=== PATIENT | female | born 1955 | race Caucasian/White ===

== ENCOUNTER 2017-08-23 21:28 | Inpatient (IN) | payer BC ==
[2017-08-23] MEDS ORDERED: Ondansetron ODT TAB* 4 MG PO ONE (21:43)
[2017-08-23] MEDS ORDERED: HYDROmorphone INJ* 2 MG/ML CARPUJECT SYRINGE IV SLOW PU ONE (21:43)
[2017-08-23 22:13] LABS: ABS Basophils 0.1 10^3/ul (0-0.2); ABS Eosinophils 0.1 10^3/ul (0-0.6); ABS Lymphocytes 1.3 10^3/ul (1.0-4.8); ABS Monocytes 0.4 10^3/ul (0-0.8); ABS Neutrophils 9.6 10^3/ul (1.5-7.7); ABS Nucleated RBC 0 10^3/ul; Hematocrit 43 % (35-47); Hemoglobin 14.3 g/dl (12.0-16.0); Lymphocyte % 11.4 % (25-47); Mean Corpuscular HGB Conc 33 g/dl (31-36); Mean Corpuscular Hemoglobin 33 pg (27-31); Mean Corpuscular Volume 100 fL (80-97); Mean Platelet Volume 8 um3 (7.4-10.4); Nucleated Red Blood Cells % 0.1; Platelet Count 283 10^3/ul (150-450); Red Blood Count 4.31 10^6/ul (4.0-5.4); Red Cell Distribution Width 13 % (10.5-15); White Blood Count 11.5 10^3/ul (3.5-10.8)
[2017-08-23 22:21] LABS: INR 0.82 (0.77-1.02)
[2017-08-23 22:25] LABS: EGFR Non-African American 89.8 (>60)
--- NOTE | 2017-08-23 23:44 | ED ---
Luis Prasad Abhishek, scribed for Darien Dominguez MD on 08/23/17 at 2255 . Lower Extremity - HPI Summary HPI Summary: This patient is a 61 year old F BIBA accompanied by a male with a chief complaint of right hip pain s/p fall since earlier today. The pt states she fell on a carpeted concrete floor and on her right knee. Upon attempting to get up after the fall, pt states she heard a pop. There was a sudden onset of right knee pain upon hearing the pop. Pt is reportedly able to rotate her knee currently in the ED and does report right knee pain after palpation of the right knee. Symptoms are aggravated by movement and position. Symptoms are alleviated by nothing. The patient rates the pain 6/10 in severity. Symptoms aggravated by nothing. Symptoms alleviated by nothing. Patient denies ambulation. - History of Current Complaint Chief Complaint: EDHipPelvisInjury Stated Complaint: RT HIP PAIN Time Seen by Provider: 08/23/17 21:31 Hx Obtained From: Patient Mechanism Of Injury: Fall From A Standing Position - carpeted concrete floor. Onset of Pain: Hours, Prior to Arrival Severity Initially: Moderate Severity Currently: Moderate Pain Intensity: 6 Pain Scale Used: 0-10 Numeric Location: Is Discrete @ - right hip Character Of Pain: Unable To Describe Associated Signs And Symptoms: Positive: Knee Pain - Prior to [facility]. Currently resolved. 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 HITTING CORRALES- AGE 17 NO PROBLEMS SINCE Denies: Hx Angina, Hx Coronary Artery Disease, Hx Hypercholesterolemia, Hx Myocardial Infarction, Hx Pacemaker/ICD, Hx Valvular Heart Disease Respiratory History: Denies: Hx Asthma, Hx Chronic Obstructive Pulmonary Disease (COPD) GI History: Reports: Hx Gastroesophageal Reflux Disease - WELL CONTROLLED, Hx Irritable Bowel - OCCASIONALLY, Hx Ulcer - gerd, Other GI Disorders - CHRONIC CONSTIPATION History: Reports: Hx Kidney Stones - HX OF IN THE PAST Denies: Hx Renal Disease Musculoskeletal History: Reports: Hx Arthritis - BILAT KNEES, FEET Sensory History: Reports: Hx Contacts or Glasses Denies: Hx Hearing Aid Opthamlomology History: Reports: Hx Contacts or Glasses Neurological History: Reports: Hx Migraine - RARE, Other Neuro Impairments/ Disorders - TAKES WELLBUTRIN- FOR MOOD STABILIZING Psychiatric History: Denies: Hx Panic Disorder - Cancer History Hx Chemotherapy: No Hx Radiation Therapy: No - Surgical History Surgery Procedure, Year, and Place: hammer toe repair. right knee meniscus repair. carpel tunnel bilat repair left twice Hx Anesthesia Reactions: No Infectious Disease History: No Infectious Disease History: Denies: Hx Clostridium Difficile, Hx Hepatitis, Hx Human Immunodeficiency Virus (HIV), Hx of Known/Suspected MRSA, Hx Shingles, Hx Tuberculosis, Traveled Outside the in Last 30 Days - Family History Known Family History: Positive: Cardiac Disease Negative: Diabetes - Social History Lives: With Family Alcohol Use: Weekly Alcohol Amount: 3-4/WEEKEND Substance Use Type: Reports: None Smoking Status (MU): Former Smoker Type: Cigarettes Amount Used/How Often: 1/2 PPD X 30 YEARS Length of Time of Smoking/Using Tobacco: 30+ YRS Have You Smoked in the Last Year: No Review of Systems Constitutional: Negative Eyes: Negative ENT: Negative Cardiovascular: Negative Respiratory: Negative Gastrointestinal: Negative Genitourinary: Negative Musculoskeletal: Other - right hip pain; right knee pain (prior to [facility] arrival ) Positive: Other - Unable to ambulate Skin: Negative Neurological: Negative Psychological: Normal All Other Systems Reviewed And Are Negative: Yes Physical Exam - Summary Physical Exam Summary: VITAL SIGNS: Reviewed. GENERAL: ~Patient is a well-developed and nourished ( FEMALE) who is lying comfortable in the stretcher. Patient is not in any acute respiratory distress. HEAD AND FACE: No signs of trauma. No ecchymosis, hematomas or skull depressions. No sinus tenderness. EYES: PERRLA, EOMI x 2, No injected conjunctiva, no nystagmus. EARS: Hearing grossly intact. Ear canals and tympanic membranes are within normal limits. MOUTH: Oropharynx within normal limits. NECK: Supple, trachea is midline, no adenopathy, no JVD, no carotid bruit, no c- spine tenderness, neck with full ROM. CHEST: Symmetric, no tenderness at palpation LUNGS: Clear to auscultation bilaterally. No wheezing or crackles. CVS: Regular rate and rhythm, S1 and S2 present, no murmurs or gallops appreciated. ABDOMEN: Soft, non-tender. No signs of distention. No rebound no guarding, and no masses palpated. Bowel sounds are normal. EXTREMITIES: Pain with right hip movement. Shortening and extended rotation of the right lower extremity NEURO: Alert and oriented x 3. No acute neurological deficits. Speech is normal and follows commands. Neurovascular exam intact SKIN: Dry and warm Triage Information Reviewed: Yes Vital Signs On Initial Exam: Initial Vitals Temp Pulse Resp BP Pulse Ox 98.4 F 102 20 156/76 99 08/23/17 21:30 08/23/17 21:30 08/23/17 21:30 08/23/17 21:30 08/23/17 21:30 Vital Signs Reviewed: Yes - Denae Coma Scale Coma Scale Total: 15 Diagnostics - Vital Signs Vital Signs Temp Pulse Resp BP Pulse Ox 08/23/17 22:06 101 18 100 08/23/17 21:39 106 99 08/23/17 21:38 103 99 08/23/17 21:31 156/76 08/23/17 21:30 98.4 F 102 20 156/76 99 - Laboratory Lab Results: Lab Results 08/23/17 08/23/17 08/23/17 Range/Units 21:50 21:50 21:50 WBC 11.5 H (3.5-10.8) 10^3/ul RBC 4.31 (4.0-5.4) 10^6/ul Hgb 14.3 (12.0-16.0) g/dl Hct 43 (35-47) % MCV 100 H (80-97) fL MCH 33 H (27-31) pg MCHC 33 (31-36) g/dl RDW 13 (10.5-15) % Plt Count 283 (150-450) 10^3/ul MPV 8 (7.4-10.4) um3 Neut % (Auto) 83.2 H (38-83) % Lymph % (Auto) 11.4 L (25-47) % [place] % (Auto) 3.8 (1-9) % Eos % (Auto) 1.0 (0-6) % Baso % (Auto) 0.6 (0-2) % Absolute Neuts (auto) 9.6 H (1.5-7.7) 10^3/ul Absolute Lymphs (auto) 1.3 (1.0-4.8) 10^3/ul Absolute Monos (auto) 0.4 (0-0.8) 10^3/ul Absolute Eos (auto) 0.1 (0-0.6) 10^3/ul Absolute Basos (auto) 0.1 (0-0.2) 10^3/ul Absolute Nucleated RBC 0 10^3/ul Nucleated RBC % 0.1 INR (Anticoag Therapy) 0.82 (0.77-1.02) APTT 26.5 (26.0-36.3) seconds Sodium 134 (133-145) mmol/L Potassium 3.8 (3.5-5.0) mmol/L Chloride 101 (101-111) mmol/L Carbon Dioxide 26 (22-32) mmol/L Anion Gap 7 (2-11) mmol/L BUN 24 (6-24) mg/dL Creatinine 0.67 (0.51-0.95) mg/dL Est GFR ( Amer) 115.5 (>60) Est GFR (Non-Af Amer) 89.8 (>60) BUN/Creatinine Ratio 35.8 H (8-20) Glucose 115 H (70-100) mg/dL Calcium 9.8 (8.6-10.3) mg/dL Total Bilirubin 0.60 (0.2-1.0) mg/dL AST 26 (13-39) U/L ALT 21 (7-52) U/L Alkaline Phosphatase 43 (34-104) U/L Total Protein 7.8 (6.4-8.9) g/dL Albumin 4.5 (3.2-5.2) g/dL Globulin 3.3 (2-4) g/dL Albumin/Globulin Ratio 1.4 (1-3) Blood Type Antibody Screen 08/23/17 Range/Units 21:50 WBC (3.5-10.8) 10^3/ul RBC (4.0-5.4) 10^6/ul Hgb (12.0-16.0) g/dl Hct (35-47) % MCV (80-97) fL MCH (27-31) pg MCHC (31-36) g/dl RDW (10.5-15) % Plt Count (150-450) 10^3/ul MPV (7.4-10.4) um3 Neut % (Auto) (38-83) % Lymph % (Auto) (25-47) % [place] % (Auto) (1-9) % Eos % (Auto) (0-6) % Baso % (Auto) (0-2) % Absolute Neuts (auto) (1.5-7.7) 10^3/ul Absolute Lymphs (auto) (1.0-4.8) 10^3/ul Absolute Monos (auto) (0-0.8) 10^3/ul Absolute Eos (auto) (0-0.6) 10^3/ul Absolute Basos (auto) (0-0.2) 10^3/ul Absolute Nucleated RBC 10^3/ul Nucleated RBC % INR (Anticoag Therapy) (0.77-1.02) APTT (26.0-36.3) seconds Sodium (133-145) mmol/L Potassium (3.5-5.0) mmol/L Chloride (101-111) mmol/L Carbon Dioxide (22-32) mmol/L Anion Gap (2-11) mmol/L BUN (6-24) mg/dL Creatinine (0.51-0.95) mg/dL Est GFR ( Amer) (>60) Est GFR (Non-Af Amer) (>60) BUN/Creatinine Ratio (8-20) Glucose (70-100) mg/dL Calcium (8.6-10.3) mg/dL Total Bilirubin (0.2-1.0) mg/dL AST (13-39) U/L ALT (7-52) U/L Alkaline Phosphatase (34-104) U/L Total Protein (6.4-8.9) g/dL Albumin (3.2-5.2) g/dL Globulin (2-4) g/dL Albumin/Globulin Ratio (1-3) Blood Type O Positive Antibody Screen Negative Result Diagrams: 08/23/17 21:50 08/23/17 21:50 Lab Statement: Any lab studies that have been ordered have been reviewed, and results considered in the medical decision making process. - Radiology Knee X-ray Radiology Interpretation Completed By: ED Physician - Knee X-ray reveals she has hardware no fracture as per ED physician Chest X-ray Radiology Interpretation Completed By: ED Physician - Chest X-ray reveals poor expiratory effort and acute process as per ED physician Hip/pelvis X-ray Radiology Interpretation Completed By: ED Physician - Hip/pelvis X-ray reveals intertrochanteric fracture right hip as per ED physician - EKG 2147 EKG Rhythm: Sinus Tachycardia - 105 bpm EKG Interpretation: Time taken: 2147. normal interval, normal axis and no ischemic changes Lower Extremity Course/Dx - Course Course Of Treatment: We consulted Orthopedist, Dr. Johnson at 0 and he recommended admitting the patient to the [facility] We discussed patient care with Dr. Amaro at 2330 and he accepts patient care. Pt will be admitted to the [facility] The dx will be right hip fracture. - Diagnoses Provider Diagnoses: Hip fracture, right - Physician Notifications Discussed Care Of Patient With: Yan Amaro - we discussed patient care. Time Discussed With Above Provider: 23:30 Instructed by Provider To: Admit As Inpatient Discharge - Discharge Plan Condition: Stable Disposition: ADMITTED TO [facility] Referrals: Belem Griffith MD [Primary Care Provider] - The documentation as recorded by the Luis smith Abhishek accurately reflects the service I personally performed and the decisions made by me, Darien Dominguez MD.
[2017-08-24] MEDS ORDERED: Ondansetron INJ* 2 MG/ML VIAL IV PRN ×2 (00:29→15:42)
[2017-08-24] MEDS ORDERED: LORazepam INJ* 2 MG/ML 1 ML VIAL IV PRN (00:29)
[2017-08-24] MEDS ORDERED: Acetaminophen TAB* 325 MG PO PRN (00:29)
[2017-08-24] MEDS ORDERED: Albuterol 2.5 MG/3 ML NEB.SOL* (0.083%) INH PRN (00:29)
[2017-08-24] MEDS ORDERED: NS 0.9% 1000 ML* 1,000 ML IV SCH (00:30)
[2017-08-24] MEDS ORDERED: traZODone TAB* 50 MG TAB PO PRN (00:31)
[2017-08-24] MEDS: fentaNYL* 50 MCG/ML 2 ML VIAL (100 MCG VIAL) IV SLOW PU PRN ×4 (02:56→10:24)
[2017-08-24 04:01] LABS: Urine Appearance Clear; Urine Blood Negative (Negative); Urine Color Yellow; Urine Ketones Negative (Negative); Urine Protein Negative (Negative); Urine Specific Gravity 1.026 (1.010-1.030); Urine Urobilinogen Negative (Negative)
--- NOTE | 2017-08-24 05:48 | HP ---
H&P (Free Text) History and Physical: PCP: Ronald Griffith MD Date/Time: 08/24/2017 0020 CC: fall, R hip pain HPI: Mrs Brady is a 61YO female HX HTN & GERD who was at home cleaning the samuel from her coal stove when she tripped on the carpet landing on her R hip experiencing immediate severe pain w/ an inability to weight bear. EMS was called for transport. Pain is worse with movement & palpation of the R hip, better with immobility. There was no head injury or LOC. No prodromal symptoms. Xray confirms intertrochanteric R hip FX. Tona Johnson MD orthopedic surgery was consulted by ED & will evaluate in AM. She denies recent chest pain, SOB, palpitations, light-headedness, or other new symptoms. PMedHx HTN GERD anxiety/depression Ambulatory Orders Nursing to reconcile. Diovan Hct 320/25(NF) 0.5 tab PO QAM 09/13/13 Flax Seeds 1 tab PO DAILY 09/13/13 Multiple Vitamins W/ Minerals [Multivitamin] 1 liq PO DAILY 09/13/13 Omeprazole CAP* [Prilosec CAP*] 20 mg PO QAM 09/13/13 Wellbutrin TAB* 300 mg PO QAM 09/13/13 Cyanocobalamin TAB* [Vitamin B12 TAB*] 500 mcg PO DAILY 07/13/15 Fexofenadine (NF) [Katerina 180 (NF)] 180 mg PO QAM 07/13/15 Pyridoxine TAB* [Vitamin B6 TAB*] 50 mg PO DAILY 07/13/15 Acetaminophen [Acetaminophen Extra Stren] 2 tab PO DAILY PRN 08/01/16 Fluticasone NASAL SPRAY 50MCG* [Flonase NASAL SPRAY 50MCG*] 2 spray BOTH NARES DAILY PRN 03/28/17 Lidocaine [Lidocream] 4 % EX TID PRN 03/28/17 traZODone TAB* [Desyrel TAB*] 50 mg PO BEDTIME PRN 03/28/17 Hemorrhoidal OINT* 1 applic TOPICAL TID PRN 04/02/17 Allergies Cephalexin [From Keflex] Allergy (Verified 08/08/16 07:22) Shortness of Breath Erythromycin Allergy (Verified 08/08/16 07:22) Rash PSurgHx B carpal tunnel release R rotator cuff repair 2016 R TKA L bunionectomy & hammer toe repair SocHx: former smoker quit 6-7years ago, minimal alcohol, no recreational drugs; lives with her ; retired [employer]; full code status FamHx: Mother passed in her 70s 2nd traumatic ICH. Father passed in his 80s 2nd CAD. One sister passed of pancreatic CA. Another sister has breast CA. Two sisters are healthy. Only brother is healthy. ROS: as above, otherwise reviewed and all were negative vitals: Vital Signs Temp 36.8 C 08/24/17 03:24 Pulse 105 08/24/17 03:24 Resp 18 08/24/17 05:07 BP 135/80 08/24/17 03:24 Pulse Ox 93 08/24/17 03:24 Intake & Output 08/23/17 08/23/17 08/24/17 11:59 23:59 11:59 Intake Total 130 Balance 130 Weight 92.986 kg 92.986 kg Intake: Oral 130 Constitutional: NAD, normally developed, obese white female HEENM: atraumatic; sclera/conjunctiva: anicteric/clear; hearing: clinically intact; oropharynx: clear, mucosa moist Neck: soft tissue: non-tender; thyroid: normal Pulmonary: clear to auscultation bilaterally, good aeration, no accessory muscle use CV: RR/RR, normal S1S2, no carotid bruit, no jugular venous distention, 2+ B DP/ PT, no edema Abdominal: soft, non-distended, non-tender, no rebound/guarding/rigidity, normoactive bowel sounds, no hepatosplenomegaly or masses, no costovertebral angle tenderness Musculoskeletal: general: RLE is shortened and externally rotated; gait: non- ambulatory currently Integumental: normal appearance and texture of exposed skin Psychiatric orientation: AA&O to PPS affect: calm mood: cooperative eye contact: good content: reliable responses: timely insight: good Testing: Lab Results 08/23/17 08/23/17 08/23/17 Range/Units 21:50 21:50 21:50 WBC 11.5 H (3.5-10.8) 10^3/ul RBC 4.31 (4.0-5.4) 10^6/ul Hgb 14.3 (12.0-16.0) g/dl Hct 43 (35-47) % MCV 100 H (80-97) fL MCH 33 H (27-31) pg MCHC 33 (31-36) g/dl RDW 13 (10.5-15) % Plt Count 283 (150-450) 10^3/ul MPV 8 (7.4-10.4) um3 Neut % (Auto) 83.2 H (38-83) % Lymph % (Auto) 11.4 L (25-47) % [place] % (Auto) 3.8 (1-9) % Eos % (Auto) 1.0 (0-6) % Baso % (Auto) 0.6 (0-2) % Absolute Neuts (auto) 9.6 H (1.5-7.7) 10^3/ul Absolute Lymphs (auto) 1.3 (1.0-4.8) 10^3/ul Absolute Monos (auto) 0.4 (0-0.8) 10^3/ul Absolute Eos (auto) 0.1 (0-0.6) 10^3/ul Absolute Basos (auto) 0.1 (0-0.2) 10^3/ul Absolute Nucleated RBC 0 10^3/ul Nucleated RBC % 0.1 INR (Anticoag Therapy) 0.82 (0.77-1.02) APTT 26.5 (26.0-36.3) seconds Sodium 134 (133-145) mmol/L Potassium 3.8 (3.5-5.0) mmol/L Chloride 101 (101-111) mmol/L Carbon Dioxide 26 (22-32) mmol/L Anion Gap 7 (2-11) mmol/L BUN 24 (6-24) mg/dL Creatinine 0.67 (0.51-0.95) mg/dL Est GFR ( Amer) 115.5 (>60) Est GFR (Non-Af Amer) 89.8 (>60) BUN/Creatinine Ratio 35.8 H (8-20) Glucose 115 H (70-100) mg/dL Calcium 9.8 (8.6-10.3) mg/dL Total Bilirubin 0.60 (0.2-1.0) mg/dL AST 26 (13-39) U/L ALT 21 (7-52) U/L Alkaline Phosphatase 43 (34-104) U/L Total Protein 7.8 (6.4-8.9) g/dL Albumin 4.5 (3.2-5.2) g/dL Globulin 3.3 (2-4) g/dL Albumin/Globulin Ratio 1.4 (1-3) Urine Color Urine Appearance Urine pH (5-9) Ur Specific [place] (1.010-1.030) Urine Protein (Negative) Urine Ketones (Negative) Urine Blood (Negative) Urine Nitrate (Negative) Urine Bilirubin (Negative) Urine Urobilinogen (Negative) Ur Leukocyte Esterase (Negative) Urine Glucose (Negative) Blood Type Antibody Screen 08/23/17 08/24/17 Range/Units 21:50 03:30 WBC (3.5-10.8) 10^3/ul RBC (4.0-5.4) 10^6/ul Hgb (12.0-16.0) g/dl Hct (35-47) % MCV (80-97) fL MCH (27-31) pg MCHC (31-36) g/dl RDW (10.5-15) % Plt Count (150-450) 10^3/ul MPV (7.4-10.4) um3 Neut % (Auto) (38-83) % Lymph % (Auto) (25-47) % [place] % (Auto) (1-9) % Eos % (Auto) (0-6) % Baso % (Auto) (0-2) % Absolute Neuts (auto) (1.5-7.7) 10^3/ul Absolute Lymphs (auto) (1.0-4.8) 10^3/ul Absolute Monos (auto) (0-0.8) 10^3/ul Absolute Eos (auto) (0-0.6) 10^3/ul Absolute Basos (auto) (0-0.2) 10^3/ul Absolute Nucleated RBC 10^3/ul Nucleated RBC % INR (Anticoag Therapy) (0.77-1.02) APTT (26.0-36.3) seconds Sodium (133-145) mmol/L Potassium (3.5-5.0) mmol/L Chloride (101-111) mmol/L Carbon Dioxide (22-32) mmol/L Anion Gap (2-11) mmol/L BUN (6-24) mg/dL Creatinine (0.51-0.95) mg/dL Est GFR ( Amer) (>60) Est GFR (Non-Af Amer) (>60) BUN/Creatinine Ratio (8-20) Glucose (70-100) mg/dL Calcium (8.6-10.3) mg/dL Total Bilirubin (0.2-1.0) mg/dL AST (13-39) U/L ALT (7-52) U/L Alkaline Phosphatase (34-104) U/L Total Protein (6.4-8.9) g/dL Albumin (3.2-5.2) g/dL Globulin (2-4) g/dL Albumin/Globulin Ratio (1-3) Urine Color Yellow Urine Appearance Clear Urine pH 5.0 (5-9) Ur Specific [place] 1.026 (1.010-1.030) Urine Protein Negative (Negative) Urine Ketones Negative (Negative) Urine Blood Negative (Negative) Urine Nitrate Negative (Negative) Urine Bilirubin Negative (Negative) Urine Urobilinogen Negative (Negative) Ur Leukocyte Esterase Negative (Negative) Urine Glucose Negative (Negative) Blood Type O Positive Antibody Screen Negative ECG, personally reviewed: sinus tachycardia rate 105, no ischemia CXR, personally reviewed: no acute process, poor inspiration, ? bone island mid- shaft R clavicle XRY pelvis/R hip, personally reviewed: intertrochanteric R hip FX XRY R knee, personally reviewed: s/p TKA in good position, no acute bony injury noted Impression: 61F HX HTN & GERD presenting w/ R hip FX s/p mechanical fall DIAGNOSIS & PLAN Primary R hip FX s/p mechanical fall : NPO after midnight : Tona Johnson MD orthopedic surgery consulted by ED, will evaluate in AM : pain control : supportive care ? bone island mid-shaft R clavicle : not clearly apparent on comparison CTA or CXR from 2013 : recommend reviewed w/ radiology in AM Secondary HTN : review meds once reconciled GERD : pantoprazole IV Admission Rational: inpatient for R hip FX DVTp: SCDs now, heparin SQ once cleared post-operatively Code Status: full HCP:
--- NOTE | 2017-08-24 07:06 | RAD ---
INDICATION: Fall, hip fracture. COMPARISON: Comparison is made to prior chest x-ray study from September 13, 2013. TECHNIQUE: 2 AP films of the chest were obtained. FINDINGS: The heart is within normal limits in size. Mediastinal and hilar contours appear within normal limits. The lungs are clear. No pleural effusion is present. IMPRESSION: NO EVIDENCE FOR ACTIVE CARDIOPULMONARY DISEASE.
--- NOTE | 2017-08-24 07:07 | RAD ---
INDICATION: Right hip injury. COMPARISON: Comparison is made with a prior x-ray study from December 01, 2014. TECHNIQUE: An AP view of the pelvis and frontal and lateral views of the right hip were obtained. FINDINGS: There is a slightly comminuted intertrochanteric fracture of the right femur. The fracture fragments are slightly displaced. No additional fracture is seen. IMPRESSION: SLIGHTLY DISPLACED INTERTROCHANTERIC FRACTURE OF THE RIGHT FEMUR.
--- NOTE | 2017-08-24 07:10 | RAD ---
INDICATION: Right knee injury. TECHNIQUE: 3 views of the right knee were obtained. FINDINGS: The exam is limited due to positioning. The patient is status post total right knee replacement surgery. The bones and prostheses are in normal alignment. No fracture is seen. IMPRESSION: LIMITED STUDY, NO EVIDENCE FOR FRACTURE.
[2017-08-24] MEDS: Pantoprazole IV* 40 MG IV SCH (08:45)
[2017-08-24] MEDS: Docusate CAP* 100 MG PO SCH ×2 (08:50→22:26)
[2017-08-24] MEDS ORDERED: Influenza VAC *QUAD* 2017-18* 0.5 ML SYRINGE IM ONE (09:00)
[2017-08-24 10:21] LABS: Hematocrit 37 % (35-47); Hemoglobin 12.5 g/dl (12.0-16.0)
[2017-08-24] MEDS ORDERED: Clindamycin 900 MG IVPREMIX(* 900 MG/50 ML SDV IV ONE (12:41)
[2017-08-24] MEDS ORDERED: HYDROmorphone INJ* 1 MG/ML CARPUJECT SYRINGE ONE (13:18)
--- NOTE | 2017-08-24 13:27 | PN ---
Progress Note - Progress Note Date of Service: 08/24/17 Note: H and P update Pt with R IT hip fracture. Plan for R hip IMN. Risks and benefits reviewed with patient.
[2017-08-24] MEDS ORDERED: fentaNYL* 50 MCG/ML 2 ML VIAL (100 MCG VIAL) ONE ×4 (13:48→17:06)
[2017-08-24] MEDS ORDERED: Midazolam* 1 MG/ML 2 ML VIAL (2 MG) ONE (13:48)
[2017-08-24] MEDS ORDERED: Propofol* 10 MG/ML 20 ML BTL IV PUSH ONE (13:49)
[2017-08-24] MEDS ORDERED: Rocuronium* 10 MG/ML VIAL ONE (13:50)
[2017-08-24] MEDS ORDERED: Sodium Citrate/Citric Acid* 15 ML UDC ONE (13:51)
[2017-08-24] MEDS ORDERED: Naloxone* 0.4 MG/ML 1 ML VIAL IV PRN (14:52)
--- NOTE | 2017-08-24 15:16 | CONS ---
CC: Dr. Griffith CONSULTATION REPORT: DATE OF CONSULT: 08/24/17 PRIMARY CARE PHYSICIAN: Dr. Griffith. CHIEF COMPLAINT: Right hip pain. HISTORY OF PRESENT ILLNESS: Ms. Brady is a 61-year-old female, who was at home cleaning samuel from her kiln when she tripped and landed on her right hip. She had immediate pain and inability to weig ht bear. She called EMS. She is known to me from previous shoulder surgery. She denies any loss of consciousness. She has no other complaints; otherwise, she has been [facility]. PAST MEDICAL HISTORY: Significant for high blood pressure, GERD, anxiety, and depression. PAST SURGICAL HISTORY: Right shoulder rotator cuff repair, 2016; bilateral carpal tunnel release; ri ght TKA; left bunionectomy and hammertoe. MEDICATIONS: Include: 1. Diovan. 2. Flaxseed. 3. Multivitamin. 4. Omeprazole. 5. Wellbutrin. 6. Cyanocobalamin. 7. Fexofenadine. 8. Pyridoxine. 9. Tylenol. 10. Fluticasone with lidocaine cream. 11. Trazodone hemorrhoid ointment. ALLERGIES: To CEPHALEXIN and ERYTHROMYCIN. FAMILY HISTORY: Significant for mother, who in her 70s due to traumatic ICH. Father wit h coronary artery disease, sister with pancreatic cancer, another sister with breast cancer. SOCIAL HISTORY: She is a former smoker. She quit 6 or 7 years ago. She does not drink alcohol or r ecreational drugs. She lives with her . She just retired in July from [employer]. REVIEW OF SYSTEMS: A 14-point review of systems reviewed with the patient. Significant for right hip pain. No shortness of breath, chest pain; otherwise remainder of systems is negative. PHYSICAL EXAM: Vitals: Temperature of 98.2, pulse of 105, respiratory rate of 18, O2 saturation 93% , blood pressure 135/80. She is in no acute distress. She is well-developed, well-nourished. She i s alert and oriented x3. She has pleasant mood and normal affect. Good balance and coordination of the extremities. Examination of the right hip demonstrates skin is intact. She is externally rotated and shortened in the bed. She is sensate to light touch about the first dorsal web space, medial, l ateral, dorsal, and plantar foot. She is able to flex and extend her toes. Dorsiflex and plantar fl ex her ankle. She has 2+ PT pulse. Her calf is soft and nontender. She is nontender about the knee, which has a well- healed incision. EOMI. Chest is clear to auscultation. Heart: Regular rate and rhythm. Alert and oriented x3. DIAGNOSTIC STUDIES/LAB DATA: White blood cell count of 11.5, hematocrit of 43, platelet count 283. INR 0.82. Sodium 134, potassium 3.8, chloride 101, carbon dioxide 26, BUN of 24, creatinine 0.67, gl ucose 115. UA was negative. X-rays demonstrate intertrochanteric hip fracture. X-rays of the knee were reviewed that demonstrate no extension of the fracture distally. ASSESSMENT AND PLAN: She has a right intertrochanteric hip fracture. She is medically optimized and we will plan for a right hip intramedullary nail later today. Risks and benefits were discussed at length that include, but not limited to bleeding, infection, damage to nerves, vessels, surrounding s tructures, wound not healing, persistent pain, need for surgery, scarring, stiffness, incomplete reli ef of symptoms, risk of anesthesia, risk of DVT. She will receive 24 hours of postoperative antibiot ics and 6 weeks of DVT prophylaxis. We will plan to take care of her later today. Plan will be for right hip intramedullary nail. [id number]/[facility] #: [id number]
[2017-08-24] MEDS ORDERED: Bupivacaine 0.25% SDV* 30 ML ONE (15:39)
[2017-08-24] MEDS ORDERED: Morphine INJ* 2 MG/ML 1 ML CARPUJECT IV PRN (15:42)
[2017-08-24] MEDS ORDERED: Magnesium Hydroxide LIQ* 30 ML UDC PO PRN (15:42)
[2017-08-24] MEDS ORDERED: Bisacodyl SUPP* 10 MG SUPP PR PRN (15:42)
[2017-08-24] MEDS ORDERED: Neostigmine Methylsulfate* 2 MG/2 ML SYRINGE ONE (15:46)
[2017-08-24] MEDS ORDERED: Glycopyrrolate IV* 0.2 MG/ML 1 ML VIAL ONE (15:46)
[2017-08-24] MEDS: fentaNYL* 50 MCG/ML 2 ML VIAL (100 MCG VIAL) IV PRN ×5 (16:02→17:07)
--- NOTE | 2017-08-24 16:44 | PN ---
Subjective Date of Service: 08/24/17 Interval History: Pt examined today post-op. She states that she is feeling well. Patient denies chest pain and denies abdominal. States that she feels drowsy. Admits to right hip pain. Denies nausea and vomiting. ROS-denies fever, denies chills, denies abdominal pain, denies nausea, denies vomiting, denies lightheadedness, denies loc, denies chest pain, denies sob, review of 11 systems completed all others negative, Objective Active Medications: Acetaminophen (Tylenol Tab*) 650 mg PO Q6H PRN PRN Reason: FEVER/PAIN Albuterol (Ventolin 2.5 Mg/3 Ml Neb.Hillary*) 2.5 mg INH Q2H PRN PRN Reason: SOB/WHEEZING Bisacodyl (Dulcolax Supp*) 10 mg [place] DAILY PRN PRN Reason: constipation Bupropion HCl (Bupropion Xl*) 300 mg PO QAM [facility] Diphenhydramine HCl (Benadryl Iv*) 25 mg IV Q6H PRN PRN Reason: itching Docusate Sodium (Colace Cap*) 200 mg PO BID [facility] Last Admin: 08/24/17 08:50 Dose: 200 mg Enoxaparin Sodium (Lovenox(*)) 30 mg SUBCUT Q24H [facility] Fentanyl Citrate (Fentanyl*) 50 mcg IV Q2M PRN PRN Reason: PAIN - MODERATE Last Admin: 08/24/17 16:32 Dose: 50 mcg Hydrochlorothiazide (Hydrodiuril Tab*) 12.5 mg PO QAM [facility] Sodium Chloride (Ns 0.9% 1000 Ml*) 1,000 mls @ 125 mls/hr IV PER RATE [facility] Last Admin: 08/24/17 02:56 Dose: 125 mls/hr Clindamycin HCl/Dextrose (Cleocin 600 Mg Ivpremix(*) Sdv) 600 mg in 50 mls @ 100 mls/hr IV Q8H [facility] Stop: 08/25/17 08:29 Lactated Ringer's (Lactated Ringers 1000 Ml Bag*) 1,000 mls @ 100 mls/hr IV PER RATE [facility] Lorazepam (Ativan Inj*) 0.5 mg IV BEDTIME PRN PRN Reason: SLEEP Magnesium Hydroxide (Milk Of Magnesia Liq*) 30 ml PO BID [facility] Magnesium Hydroxide (Milk Of Magnesia Liq*) 30 ml PO Q6H PRN PRN Reason: constipation Morphine Sulfate (Morphine Inj (Syringe)*) 2 mg IV Q2H PRN PRN Reason: PAIN - UNCONTROLLED Multivitamins (Theragran Tab*) 1 tab PO DAILY [facility] Naloxone HCl (Narcan*) 0.08 mg IV Q2M PRN PRN Reason: severe induced resp depression Ondansetron HCl (Zofran Inj*) 4 mg IV Q6H PRN PRN Reason: NAUSEA Ondansetron HCl (Zofran Inj*) 4 mg IV Q6H PRN PRN Reason: nausea Oxycodone HCl (Roxycodone Tab*) 10 mg PO Q4H PRN PRN Reason: PAIN - SEVERE Oxycodone/Acetaminophen (Percocet 5/325 Tab*) 2 tab PO Q4H PRN PRN Reason: PAIN Pantoprazole Sodium (Protonix Iv*) 40 mg IV DAILY [facility] Last Admin: 08/24/17 08:45 Dose: 40 mg Trazodone HCl (Desyrel Tab*) 50 mg PO BEDTIME PRN PRN Reason: INSOMNIA Last Admin: 08/24/17 02:55 Dose: 50 mg Valsartan (Diovan Tab*) 160 mg PO QAM [facility] Vital Signs - 8 hr 08/24/17 08/24/17 08/24/17 10:24 11:18 15:57 Temperature 97.8 F 97.9 F Pulse Rate 88 82 Respiratory 20 14 14 Rate Blood Pressure 136/75 145/88 (mmHg) O2 Sat by Pulse 97 97 Oximetry 08/24/17 08/24/17 08/24/17 16:00 16:02 16:05 Temperature Pulse Rate 87 87 Respiratory 14 18 14 Rate Blood Pressure 145/82 147/86 (mmHg) O2 Sat by Pulse 96 94 Oximetry 08/24/17 08/24/17 08/24/17 16:10 16:14 16:15 Temperature Pulse Rate 85 86 Respiratory 16 16 18 Rate Blood Pressure 137/82 154/86 (mmHg) O2 Sat by Pulse 99 100 Oximetry 08/24/17 08/24/17 16:19 16:32 Temperature Pulse Rate Respiratory 18 18 Rate Blood Pressure (mmHg) O2 Sat by Pulse Oximetry Oxygen Devices in Use Now: Nasal Cannula Appearance: 61 y/o female patient NAD, sitting in hospital bed, Ears/Nose/Mouth/Throat: NL Teeth, Lips, Gums Neck: NL Appearance and Movements; NL JVP Respiratory: Symmetrical Chest Expansion and Respiratory Effort, Clear to Auscultation Cardiovascular: NL Sounds; No Murmurs; No JVD Abdominal: NL Sounds; No Tenderness; No Distention Extremities: No Edema, - - distal csm checks intact, Skin: No Rash or Ulcers, - - incision to right hip covered with dressing CDI, Neurological: Alert and Oriented x 3 Result Diagrams: 08/24/17 09:53 08/23/17 21:50 Additional Lab and Data: Lab Results 08/23/17 08/23/17 08/23/17 Range/Units 21:50 21:50 21:50 WBC 11.5 H (3.5-10.8) 10^3/ul RBC 4.31 (4.0-5.4) 10^6/ul Hgb 14.3 (12.0-16.0) g/dl Hct 43 (35-47) % MCV 100 H (80-97) fL MCH 33 H (27-31) pg MCHC 33 (31-36) g/dl RDW 13 (10.5-15) % Plt Count 283 (150-450) 10^3/ul MPV 8 (7.4-10.4) um3 Neut % (Auto) 83.2 H (38-83) % Lymph % (Auto) 11.4 L (25-47) % [place] % (Auto) 3.8 (1-9) % Eos % (Auto) 1.0 (0-6) % Baso % (Auto) 0.6 (0-2) % Absolute Neuts (auto) 9.6 H (1.5-7.7) 10^3/ul Absolute Lymphs (auto) 1.3 (1.0-4.8) 10^3/ul Absolute Monos (auto) 0.4 (0-0.8) 10^3/ul Absolute Eos (auto) 0.1 (0-0.6) 10^3/ul Absolute Basos (auto) 0.1 (0-0.2) 10^3/ul Absolute Nucleated RBC 0 10^3/ul Nucleated RBC % 0.1 INR (Anticoag Therapy) 0.82 (0.77-1.02) APTT 26.5 (26.0-36.3) seconds Sodium 134 (133-145) mmol/L Potassium 3.8 (3.5-5.0) mmol/L Chloride 101 (101-111) mmol/L Carbon Dioxide 26 (22-32) mmol/L Anion Gap 7 (2-11) mmol/L BUN 24 (6-24) mg/dL Creatinine 0.67 (0.51-0.95) mg/dL Est GFR ( Amer) 115.5 (>60) Est GFR (Non-Af Amer) 89.8 (>60) BUN/Creatinine Ratio 35.8 H (8-20) Glucose 115 H (70-100) mg/dL Calcium 9.8 (8.6-10.3) mg/dL Total Bilirubin 0.60 (0.2-1.0) mg/dL AST 26 (13-39) U/L ALT 21 (7-52) U/L Alkaline Phosphatase 43 (34-104) U/L Total Protein 7.8 (6.4-8.9) g/dL Albumin 4.5 (3.2-5.2) g/dL Globulin 3.3 (2-4) g/dL Albumin/Globulin Ratio 1.4 (1-3) Blood Type Antibody Screen 08/23/17 Range/Units 21:50 WBC (3.5-10.8) 10^3/ul RBC (4.0-5.4) 10^6/ul Hgb (12.0-16.0) g/dl Hct (35-47) % MCV (80-97) fL MCH (27-31) pg MCHC (31-36) g/dl RDW (10.5-15) % Plt Count (150-450) 10^3/ul MPV (7.4-10.4) um3 Neut % (Auto) (38-83) % Lymph % (Auto) (25-47) % [place] % (Auto) (1-9) % Eos % (Auto) (0-6) % Baso % (Auto) (0-2) % Absolute Neuts (auto) (1.5-7.7) 10^3/ul Absolute Lymphs (auto) (1.0-4.8) 10^3/ul Absolute Monos (auto) (0-0.8) 10^3/ul Absolute Eos (auto) (0-0.6) 10^3/ul Absolute Basos (auto) (0-0.2) 10^3/ul Absolute Nucleated RBC 10^3/ul Nucleated RBC % INR (Anticoag Therapy) (0.77-1.02) APTT (26.0-36.3) seconds Sodium (133-145) mmol/L Potassium (3.5-5.0) mmol/L Chloride (101-111) mmol/L Carbon Dioxide (22-32) mmol/L Anion Gap (2-11) mmol/L BUN (6-24) mg/dL Creatinine (0.51-0.95) mg/dL Est GFR ( Amer) (>60) Est GFR (Non-Af Amer) (>60) BUN/Creatinine Ratio (8-20) Glucose (70-100) mg/dL Calcium (8.6-10.3) mg/dL Total Bilirubin (0.2-1.0) mg/dL AST (13-39) U/L ALT (7-52) U/L Alkaline Phosphatase (34-104) U/L Total Protein (6.4-8.9) g/dL Albumin (3.2-5.2) g/dL Globulin (2-4) g/dL Albumin/Globulin Ratio (1-3) Blood Type O Positive Antibody Screen Negative Assess/Plan/Problems-Billing Assessment: 61 y/o female patient presenting to [facility] [place] with complaints of fall now with right hip fx, - Patient Problems (1) HTN (hypertension) Current Visit: Yes Status: Acute Priority: High Comment: Hold hctz, continue Diovan, stable, (2) Anxiety and depression Current Visit: Yes Status: Acute Priority: High Comment: continue home medications, stable, (3) Closed right hip fracture Current Visit: Yes Status: Acute Priority: High Comment: POD 0 s/p ORIF, management per ortho (4) DVT prophylaxis Current Visit: Yes Status: Acute Priority: High Comment: Lovenox (5) FEN Current Visit: Yes Status: Acute Priority: High Comment: Regular Diet (6) Full code status Current Visit: Yes Status: Acute Status and Disposition: S/p orif right hip, PT/OT efforts start tomorrow, most likley home with services when able,
[2017-08-24] MEDS: oxyCODONE/Acetamin 5/325 MG* TAB PO PRN (18:33)
[2017-08-24] MEDS ORDERED: Morphine INJ* 2 MG/ML 1 ML SYRINGE (TWO MG - NEW SYRINGE VERSION) IV PRN (21:28)
--- NOTE | 2017-08-24 21:47 | RAD ---
INDICATION: Right hip fracture operative reduction and internal fixation. COMPARISON: Comparison is made with a prior x-ray study of the right hip from August 23, 2015. TECHNIQUE: 43.7 seconds of intermittent fluoroscopic guidance were provided and 4 spot films of the right hip were obtained in the operating room. FINDINGS: Again note is made of a comminuted intertrochanteric fracture of the right femur. There is been placement of a gamma nail and intramedullary edna spanning the fracture fragments. IMPRESSION: INTRAOPERATIVE CONTROL FILMS. CPT II Codes: 6045F
[2017-08-24] MEDS: Magnesium Hydroxide LIQ* 30 ML UDC PO SCH (22:25)
[2017-08-24] MEDS: Clindamycin 600 MG IVPREMIX(* 600 MG/50 ML SDV IV SCH (22:26)
[2017-08-25] MEDS ORDERED: Heparin VIAL(*) 5000 UNITS/ML VIAL (FIVE THOUSAND) SUBCUT ONE (00:30)
[2017-08-25] MEDS: oxyCODONE/Acetamin 5/325 MG* TAB PO PRN ×6 (01:40→23:31)
[2017-08-25] MEDS: Clindamycin 600 MG IVPREMIX(* 600 MG/50 ML SDV IV SCH ×2 (05:32→14:23)
[2017-08-25 05:41] LABS: ABS Basophils 0 10^3/ul (0-0.2); ABS Eosinophils 0.1 10^3/ul (0-0.6); ABS Lymphocytes 1.9 10^3/ul (1.0-4.8); ABS Monocytes 0.7 10^3/ul (0-0.8); ABS Neutrophils 6.2 10^3/ul (1.5-7.7); ABS Nucleated RBC 0 10^3/ul; Eosinophil % 0.8 % (0-6); Hematocrit 33 % (35-47); Hemoglobin 11.2 g/dl (12.0-16.0); Lymphocyte % 21.7 % (25-47); Mean Corpuscular HGB Conc 34 g/dl (31-36); Mean Corpuscular Hemoglobin 34 pg (27-31); Mean Corpuscular Volume 99 fL (80-97); Mean Platelet Volume 8 um3 (7.4-10.4); Nucleated Red Blood Cells % 0; Platelet Count 190 10^3/ul (150-450); Red Cell Distribution Width 13 % (10.5-15)
[2017-08-25 05:46] LABS: INR 1.04 (0.77-1.02)
[2017-08-25 05:56] LABS: EGFR Non-African American 125.9 (>60)
[2017-08-25] MEDS: oxyCODONE TAB* 5 MG TAB PO PRN ×3 (08:04→20:48)
[2017-08-25] MEDS: diPHENhydraMINE IV* 50 MG/ML 1 ml VIAL (BENADRYL) IV PRN ×2 (08:07→14:24)
[2017-08-25] MEDS: Pantoprazole IV* 40 MG IV SCH (08:07)
[2017-08-25] MEDS: Vitamin THERAPEUTIC TAB PO SCH (08:08)
[2017-08-25] MEDS: Magnesium Hydroxide LIQ* 30 ML UDC PO SCH ×2 (08:08→20:49)
[2017-08-25] MEDS: Valsartan TAB* 160 MG PO SCH (08:08)
[2017-08-25] MEDS: Omeprazole CAP* 20 MG PO SCH (08:08)
[2017-08-25] MEDS: Docusate CAP* 100 MG PO SCH ×2 (08:08→20:49)
[2017-08-25] MEDS: Enoxaparin(*) 30 MG/0.3 ML SYR SUBCUT SCH (08:08)
[2017-08-25] MEDS ORDERED: Hydrochlorothiazide TAB* 25 MG PO SCH (09:00)
[2017-08-25] MEDS ORDERED: DIOVAN HCT PO SCH (09:00)
--- NOTE | 2017-08-25 09:26 | PN ---
Progress Note - Progress Note Date of Service: 08/25/17 SOAP: Subjective: POD#1 from R hip TFN. walked to bathroom. pain controlled. no complaints. feels good. PT in room Objective: Temp Pulse Resp BP Pulse Ox 97.6 F 88 20 133/70 98 08/25/17 07:43 08/25/17 07:43 08/25/17 08:07 08/25/17 07:43 08/25/17 07:43 NAD. R hip: dressing in place. calf soft and nontender. able to flex/ext knee, df/pf ankle. SILT grossly distally. brisk cap refill Assessment: POD#1 from R hip TFN Plan: WBAT OOB to chair post op abx DVT ppx for 6 weeks dressing change tomorrow potential D/C tomorrow
[2017-08-25] MEDS: BuPROPion XL* 300 MG TAB.XL PO SCH (10:03)
--- NOTE | 2017-08-25 16:33 | PN ---
Subjective Date of Service: 08/25/17 Interval History: Pt examined today at the bedside. She states that she is feeling well. She denies chest pain and denies sob. States she is feeling well. Pt states that her pain is well controlled. ROS-denies fever, denies chest pain, denies sob, denies abdominal pain, denies nausea, denies vomiting, denies lightheadedness, review of 11 systems completed all others negative Objective Active Medications: Acetaminophen (Tylenol Tab*) 650 mg PO Q6H PRN PRN Reason: FEVER/PAIN Albuterol (Ventolin 2.5 Mg/3 Ml Neb.Hillary*) 2.5 mg INH Q2H PRN PRN Reason: SOB/WHEEZING Bisacodyl (Dulcolax Supp*) 10 mg [place] DAILY PRN PRN Reason: constipation Bupropion HCl (Bupropion Xl*) 300 mg PO QAM [facility] Last Admin: 08/25/17 10:03 Dose: 300 mg Diphenhydramine HCl (Benadryl Iv*) 25 mg IV Q6H PRN PRN Reason: itching Last Admin: 08/25/17 14:24 Dose: 25 mg Docusate Sodium (Colace Cap*) 200 mg PO BID [facility] Last Admin: 08/25/17 08:08 Dose: 200 mg Enoxaparin Sodium (Lovenox(*)) 30 mg SUBCUT Q24HR [facility] Last Admin: 08/25/17 08:08 Dose: 30 mg Lactated Ringer's (Lactated Ringers 1000 Ml Bag*) 1,000 mls @ 100 mls/hr IV PER RATE [facility] Last Admin: 08/25/17 01:37 Dose: 100 mls/hr Lorazepam (Ativan Inj*) 0.5 mg IV BEDTIME PRN PRN Reason: SLEEP Magnesium Hydroxide (Milk Of Magnesia Liq*) 30 ml PO BID [facility] Last Admin: 08/25/17 08:08 Dose: 30 ml Magnesium Hydroxide (Milk Of Magnesia Liq*) 30 ml PO Q6H PRN PRN Reason: constipation Morphine Sulfate (Morphine Inj (Syringe)*) 2 mg IV Q2H PRN PRN Reason: PAIN - UNCONTROLLED Last Admin: 08/24/17 21:31 Dose: 2 mg Multivitamins (Theragran Tab*) 1 tab PO DAILY [facility] Last Admin: 08/25/17 08:08 Dose: 1 tab Omeprazole (Prilosec Cap*) 20 mg PO 0730 [facility] Last Admin: 08/25/17 08:08 Dose: 20 mg Ondansetron HCl (Zofran Inj*) 4 mg IV Q6H PRN PRN Reason: nausea Oxycodone HCl (Roxycodone Tab*) 10 mg PO Q4H PRN PRN Reason: PAIN - SEVERE Last Admin: 08/25/17 12:42 Dose: 10 mg Oxycodone/Acetaminophen (Percocet 5/325 Tab*) 2 tab PO Q4H PRN PRN Reason: PAIN Last Admin: 08/25/17 14:23 Dose: 2 tab Pantoprazole Sodium (Protonix Iv*) 40 mg IV DAILY [facility] Last Admin: 08/25/17 08:07 Dose: 40 mg Trazodone HCl (Desyrel Tab*) 50 mg PO BEDTIME PRN PRN Reason: INSOMNIA Last Admin: 08/24/17 02:55 Dose: 50 mg Valsartan (Diovan Tab*) 160 mg PO QAM [facility] Last Admin: 08/25/17 08:08 Dose: 160 mg Vital Signs - 8 hr 08/25/17 08/25/17 08/25/17 10:04 10:08 11:13 Temperature 97.4 F Pulse Rate 98 Respiratory 20 18 15 Rate Blood Pressure 103/60 (mmHg) O2 Sat by Pulse 99 Oximetry 08/25/17 08/25/17 08/25/17 12:42 12:57 14:23 Temperature Pulse Rate Respiratory 16 20 20 Rate Blood Pressure (mmHg) O2 Sat by Pulse Oximetry 08/25/17 08/25/17 08/25/17 14:24 15:29 15:46 Temperature 98.2 F Pulse Rate 95 Respiratory 20 16 Rate Blood Pressure 94/75 (mmHg) O2 Sat by Pulse 96 Oximetry 08/25/17 15:59 Temperature Pulse Rate Respiratory 16 Rate Blood Pressure (mmHg) O2 Sat by Pulse Oximetry Oxygen Devices in Use Now: None Appearance: 61 y/o female patient NAD< Eyes: No Scleral Icterus, PERRLA Ears/Nose/Mouth/Throat: NL Teeth, Lips, Gums Neck: NL Appearance and Movements; NL JVP Respiratory: Symmetrical Chest Expansion and Respiratory Effort, Clear to Auscultation Cardiovascular: NL Sounds; No Murmurs; No JVD Abdominal: NL Sounds; No Tenderness; No Distention Lymphatic: No Cervical Adenopathy Extremities: - - distal csm intact to ble, Skin: No Rash or Ulcers Neurological: Alert and Oriented x 3 Lines/Tubes/Other Access: Clean, Dry and Intact Peripheral IV Result Diagrams: 08/25/17 05:15 08/25/17 05:15 Additional Lab and Data: Lab Results 08/23/17 08/23/17 08/23/17 Range/Units 21:50 21:50 21:50 WBC 11.5 H (3.5-10.8) 10^3/ul RBC 4.31 (4.0-5.4) 10^6/ul Hgb 14.3 (12.0-16.0) g/dl Hct 43 (35-47) % MCV 100 H (80-97) fL MCH 33 H (27-31) pg MCHC 33 (31-36) g/dl RDW 13 (10.5-15) % Plt Count 283 (150-450) 10^3/ul MPV 8 (7.4-10.4) um3 Neut % (Auto) 83.2 H (38-83) % Lymph % (Auto) 11.4 L (25-47) % [place] % (Auto) 3.8 (1-9) % Eos % (Auto) 1.0 (0-6) % Baso % (Auto) 0.6 (0-2) % Absolute Neuts (auto) 9.6 H (1.5-7.7) 10^3/ul Absolute Lymphs (auto) 1.3 (1.0-4.8) 10^3/ul Absolute Monos (auto) 0.4 (0-0.8) 10^3/ul Absolute Eos (auto) 0.1 (0-0.6) 10^3/ul Absolute Basos (auto) 0.1 (0-0.2) 10^3/ul Absolute Nucleated RBC 0 10^3/ul Nucleated RBC % 0.1 INR (Anticoag Therapy) 0.82 (0.77-1.02) APTT 26.5 (26.0-36.3) seconds Sodium 134 (133-145) mmol/L Potassium 3.8 (3.5-5.0) mmol/L Chloride 101 (101-111) mmol/L Carbon Dioxide 26 (22-32) mmol/L Anion Gap 7 (2-11) mmol/L BUN 24 (6-24) mg/dL Creatinine 0.67 (0.51-0.95) mg/dL Est GFR ( Amer) 115.5 (>60) Est GFR (Non-Af Amer) 89.8 (>60) BUN/Creatinine Ratio 35.8 H (8-20) Glucose 115 H (70-100) mg/dL Calcium 9.8 (8.6-10.3) mg/dL Total Bilirubin 0.60 (0.2-1.0) mg/dL AST 26 (13-39) U/L ALT 21 (7-52) U/L Alkaline Phosphatase 43 (34-104) U/L Total Protein 7.8 (6.4-8.9) g/dL Albumin 4.5 (3.2-5.2) g/dL Globulin 3.3 (2-4) g/dL Albumin/Globulin Ratio 1.4 (1-3) Blood Type Antibody Screen 08/23/17 Range/Units 21:50 WBC (3.5-10.8) 10^3/ul RBC (4.0-5.4) 10^6/ul Hgb (12.0-16.0) g/dl Hct (35-47) % MCV (80-97) fL MCH (27-31) pg MCHC (31-36) g/dl RDW (10.5-15) % Plt Count (150-450) 10^3/ul MPV (7.4-10.4) um3 Neut % (Auto) (38-83) % Lymph % (Auto) (25-47) % [place] % (Auto) (1-9) % Eos % (Auto) (0-6) % Baso % (Auto) (0-2) % Absolute Neuts (auto) (1.5-7.7) 10^3/ul Absolute Lymphs (auto) (1.0-4.8) 10^3/ul Absolute Monos (auto) (0-0.8) 10^3/ul Absolute Eos (auto) (0-0.6) 10^3/ul Absolute Basos (auto) (0-0.2) 10^3/ul Absolute Nucleated RBC 10^3/ul Nucleated RBC % INR (Anticoag Therapy) (0.77-1.02) APTT (26.0-36.3) seconds Sodium (133-145) mmol/L Potassium (3.5-5.0) mmol/L Chloride (101-111) mmol/L Carbon Dioxide (22-32) mmol/L Anion Gap (2-11) mmol/L BUN (6-24) mg/dL Creatinine (0.51-0.95) mg/dL Est GFR ( Amer) (>60) Est GFR (Non-Af Amer) (>60) BUN/Creatinine Ratio (8-20) Glucose (70-100) mg/dL Calcium (8.6-10.3) mg/dL Total Bilirubin (0.2-1.0) mg/dL AST (13-39) U/L ALT (7-52) U/L Alkaline Phosphatase (34-104) U/L Total Protein (6.4-8.9) g/dL Albumin (3.2-5.2) g/dL Globulin (2-4) g/dL Albumin/Globulin Ratio (1-3) Blood Type O Positive Antibody Screen Negative Assess/Plan/Problems-Billing Assessment: 61 y/o female patient presenting to [facility] [place] with complaints of fall now with right hip fx, - Patient Problems (1) HTN (hypertension) Current Visit: Yes Status: Acute Priority: High Comment: Hold hctz, continue Diovan, sbp 94 systolic no symptoms will follow (2) Anxiety and depression Current Visit: Yes Status: Acute Priority: High Comment: continue home medications, stable, (3) Closed right hip fracture Current Visit: Yes Status: Acute Priority: High Comment: POD 1 s/p ORIF, management per ortho most likely home tomorrow with services, (4) DVT prophylaxis Current Visit: Yes Status: Acute Priority: High Comment: Lovenox (5) FEN Current Visit: Yes Status: Acute Priority: High Comment: Regular Diet (6) Full code status Current Visit: Yes Status: Acute Status and Disposition: S/p orif right hip, PT/OT , home with services tomorrow
[2017-08-26] MEDS: oxyCODONE TAB* 5 MG TAB PO PRN ×2 (02:59→10:55)
[2017-08-26 06:03] LABS: Hematocrit 31 % (35-47); Hemoglobin 10.6 g/dl (12.0-16.0); Mean Platelet Volume 8 um3 (7.4-10.4); Platelet Count 184 10^3/ul (150-450)
[2017-08-26 06:08] LABS: INR 0.99 (0.77-1.02)
[2017-08-26] MEDS: oxyCODONE/Acetamin 5/325 MG* TAB PO PRN ×2 (06:55→14:17)
--- NOTE | 2017-08-26 07:22 | PN ---
Progress Note - Progress Note Date of Service: 08/26/17 SOAP: Subjective: POD#2 from R hip IMN. doing well. hasnt tried stairs yet. ambulating to bathroom well Objective: Temp Pulse Resp BP Pulse Ox 98.3 F 101 18 118/63 95 08/26/17 03:53 08/26/17 03:53 08/26/17 06:57 08/26/17 03:53 08/26/17 03:53 NAD. R hip dressing in place. able to flex/ext knee. DF/PF ankles, flex ext/ toes. SILT grossly distally. calf soft, nontender. brisk cap refill Assessment: POD#2 from R IMN. Plan: WBAT PT/OT lovenox for dvt ppx for 6 weeks f/u in 2 weeks with me in office. dressing change today.
[2017-08-26] MEDS: Pantoprazole IV* 40 MG IV SCH (07:47)
[2017-08-26] MEDS: Vitamin THERAPEUTIC TAB PO SCH (07:57)
[2017-08-26] MEDS: Valsartan TAB* 160 MG PO SCH (07:57)
[2017-08-26] MEDS: BuPROPion XL* 300 MG TAB.XL PO SCH (07:57)
[2017-08-26] MEDS: Docusate CAP* 100 MG PO SCH (07:57)
[2017-08-26] MEDS: Omeprazole CAP* 20 MG PO SCH (07:57)
[2017-08-26] MEDS: Enoxaparin(*) 30 MG/0.3 ML SYR SUBCUT SCH (07:57)
[2017-08-26] MEDS: Magnesium Hydroxide LIQ* 30 ML UDC PO SCH (07:58)
[2017-08-26] MEDS: diPHENhydraMINE IV* 50 MG/ML 1 ml VIAL (BENADRYL) IV PRN (08:04)
[2017-08-26 12:41] VITALS: BP 96/35
--- NOTE | 2017-08-26 23:06 | PN ---
Subjective Date of Service: 08/26/17 Interval History: Patient states that she is feeling well, no complaints. Sitting in chair at the time of examination. Denies cp, SOB, or abd pain. Denies N/V/D. Family History: Unchanged from Admission Social History: Unchanged from Admission Past Medical History: Unchanged from Admission Objective Oxygen Devices in Use Now: None Eyes: No Scleral Icterus Ears/Nose/Mouth/Throat: Clear Oropharnyx, Mucous Membranes Moist Neck: NL Appearance and Movements; NL JVP, Trachea Midline Respiratory: Symmetrical Chest Expansion and Respiratory Effort, Clear to Auscultation Cardiovascular: NL Sounds; No Murmurs; No JVD, RRR, No Edema Abdominal: NL Sounds; No Tenderness; No Distention Extremities: No Edema, No Clubbing, Cyanosis, - - dressing intact to right hip Skin: No Rash or Ulcers Neurological: Alert and Oriented x 3 Nutrition: Taking PO's Result Diagrams: 08/26/17 05:38 08/25/17 05:15 Additional Lab and Data: Lab Results 08/23/17 08/23/17 08/23/17 Range/Units 21:50 21:50 21:50 WBC 11.5 H (3.5-10.8) 10^3/ul RBC 4.31 (4.0-5.4) 10^6/ul Hgb 14.3 (12.0-16.0) g/dl Hct 43 (35-47) % MCV 100 H (80-97) fL MCH 33 H (27-31) pg MCHC 33 (31-36) g/dl RDW 13 (10.5-15) % Plt Count 283 (150-450) 10^3/ul MPV 8 (7.4-10.4) um3 Neut % (Auto) 83.2 H (38-83) % Lymph % (Auto) 11.4 L (25-47) % [place] % (Auto) 3.8 (1-9) % Eos % (Auto) 1.0 (0-6) % Baso % (Auto) 0.6 (0-2) % Absolute Neuts (auto) 9.6 H (1.5-7.7) 10^3/ul Absolute Lymphs (auto) 1.3 (1.0-4.8) 10^3/ul Absolute Monos (auto) 0.4 (0-0.8) 10^3/ul Absolute Eos (auto) 0.1 (0-0.6) 10^3/ul Absolute Basos (auto) 0.1 (0-0.2) 10^3/ul Absolute Nucleated RBC 0 10^3/ul Nucleated RBC % 0.1 INR (Anticoag Therapy) 0.82 (0.77-1.02) APTT 26.5 (26.0-36.3) seconds Sodium 134 (133-145) mmol/L Potassium 3.8 (3.5-5.0) mmol/L Chloride 101 (101-111) mmol/L Carbon Dioxide 26 (22-32) mmol/L Anion Gap 7 (2-11) mmol/L BUN 24 (6-24) mg/dL Creatinine 0.67 (0.51-0.95) mg/dL Est GFR ( Amer) 115.5 (>60) Est GFR (Non-Af Amer) 89.8 (>60) BUN/Creatinine Ratio 35.8 H (8-20) Glucose 115 H (70-100) mg/dL Calcium 9.8 (8.6-10.3) mg/dL Total Bilirubin 0.60 (0.2-1.0) mg/dL AST 26 (13-39) U/L ALT 21 (7-52) U/L Alkaline Phosphatase 43 (34-104) U/L Total Protein 7.8 (6.4-8.9) g/dL Albumin 4.5 (3.2-5.2) g/dL Globulin 3.3 (2-4) g/dL Albumin/Globulin Ratio 1.4 (1-3) Blood Type Antibody Screen 08/23/17 Range/Units 21:50 WBC (3.5-10.8) 10^3/ul RBC (4.0-5.4) 10^6/ul Hgb (12.0-16.0) g/dl Hct (35-47) % MCV (80-97) fL MCH (27-31) pg MCHC (31-36) g/dl RDW (10.5-15) % Plt Count (150-450) 10^3/ul MPV (7.4-10.4) um3 Neut % (Auto) (38-83) % Lymph % (Auto) (25-47) % [place] % (Auto) (1-9) % Eos % (Auto) (0-6) % Baso % (Auto) (0-2) % Absolute Neuts (auto) (1.5-7.7) 10^3/ul Absolute Lymphs (auto) (1.0-4.8) 10^3/ul Absolute Monos (auto) (0-0.8) 10^3/ul Absolute Eos (auto) (0-0.6) 10^3/ul Absolute Basos (auto) (0-0.2) 10^3/ul Absolute Nucleated RBC 10^3/ul Nucleated RBC % INR (Anticoag Therapy) (0.77-1.02) APTT (26.0-36.3) seconds Sodium (133-145) mmol/L Potassium (3.5-5.0) mmol/L Chloride (101-111) mmol/L Carbon Dioxide (22-32) mmol/L Anion Gap (2-11) mmol/L BUN (6-24) mg/dL Creatinine (0.51-0.95) mg/dL Est GFR ( Amer) (>60) Est GFR (Non-Af Amer) (>60) BUN/Creatinine Ratio (8-20) Glucose (70-100) mg/dL Calcium (8.6-10.3) mg/dL Total Bilirubin (0.2-1.0) mg/dL AST (13-39) U/L ALT (7-52) U/L Alkaline Phosphatase (34-104) U/L Total Protein (6.4-8.9) g/dL Albumin (3.2-5.2) g/dL Globulin (2-4) g/dL Albumin/Globulin Ratio (1-3) Blood Type O Positive Antibody Screen Negative Assess/Plan/Problems-Billing Assessment: 61 y/[place] [facility] [place] now with right hip fx, doing well, will discharge home today - Patient Problems (1) Anxiety and depression Status: Acute Priority: High Code(s): F41.8 - OTHER SPECIFIED ANXIETY DISORDERS SNOMED Code(s): 690511312 Comment: continue home medications, stable, (2) Closed right hip fracture Status: Acute Priority: High Code(s): S72.001A - FRACTURE OF UNSP PART OF NECK OF RIGHT FEMUR, INIT SNOMED Code(s): 113491198 Comment: POD 1 s/p ORIF, management per ortho most likely home tomorrow with services, Lovenox 30 mg subq daily for 6 weeks Follow up with Dr. Johnson in 2 weeks Change dressing daily watch for signs of infections percocet 1 to2 tablets every 4to 6 hours as need for pain. (3) DVT prophylaxis Status: Acute Priority: High Code(s): IZO9788 - SNOMED Code(s): 044981317 Comment: Lovenox will continue at home for 6 weeks per orthopedic recommendations (4) FEN Status: Acute Priority: High Comment: Regular Diet (5) Full code status Status: Acute Code(s): Z78.9 - OTHER SPECIFIED HEALTH STATUS SNOMED Code(s) : 535243771 (6) HTN (hypertension) Status: Acute Priority: High Code(s): I10 - ESSENTIAL (PRIMARY) HYPERTENSION SNOMED Code(s): 41945923 Comment: Continue home medications Status and Disposition: S/p orif right hip, PT/OT , home with services today, VNA for in home PT/OT
--- NOTE | 2017-08-27 09:40 | OP ---
CC: PCP, Belem Griffith MD * DATE OF OPERATION: 08/24/17 - ROOM #338 DATE OF : 57 SURGEON: Lupillo Johnson MD SILVICULTURE TEACHER: None available. ANESTHESIOLOGIST: Dr. Copeland. ANESTHESIA: General. PRE-OP DIAGNOSIS: Right intertrochanteric hip fracture. POST-OP DIAGNOSIS: Right intertrochanteric hip fracture. OPERATIVE PROCEDURE: Right hip intramedullary nail. COMPLICATIONS: None. ESTIMATED BLOOD LOSS: 150 cc. IMPLANTS USED: Synthes PFNA 12, short nail with a 100-mm blade, screw blade, interlock in the appropriate leg, distal fixation. INDICATIONS: Zaida Brady is a 61-year-old female with associated mechanical fall. She is diagnosed with intertrochanteric hip fracture. Risks and benefits of surgery versus nonoperative treatment were discussed at length, including but are not limited to bleeding, infection, damage to nerves, vessels , surrounding structures, wound nonhealing, persistent pain, need for further surgery, scarring, stiffness, incomplete relief of symptoms, and risks of anesthesia. DESCRIPTION OF PROCEDURE: The patient was greeted in the preoperative area by the attending surgeon. Correct extremity was marked and the consent was confirmed. The patient was then brought back to the operating suite where she was placed in supine position on the operating table. She then underwent general anesthesia endotracheal intubation, after which she was appropriately positioned on the fracture table. A well-padded perineal post, the left leg was placed in the Well leg mendez. The right foot was secured in the traction device and was well padded. The right arm was draped over the chest and secured. The positional reduction was done using the x-ray. Once the reduction was confirmed, the right hip was then prepped and draped in usual sterile fashion beginning with chlorhexidine soap, scrub, and alcohol wipe, and a final prep with ChloraPrep. After appropriate surgical pause indicating side, site, procedure and administration of antibiotics, a 5-cm incision proximal to the tip of the trochanter was then made, soft tissues were carefully dissected to expose the fascia, which was separately incised. The guidewire was then placed in appropriate position. Once it was confirmed in the AP and lateral, the 60-mm opening reamer was then used to drill the starting position. A guidewire was placed down just in case there needed to be a long nail placement. A reamer was placed down and found the patient's canal was size 12 mm, short nail was then chosen and gently impacted in position. Once it was done, we appropriately positioned, the guide arm was assembled, through a separate stab incision and guidewire was placed low into the femoral neck. This was confirmed on the AP and lateral views. The lateral wall was measured to be about 104. The lateral cortex was then accessed using the drill. The blade drill bit was then predrilled. The blade was then brought to the table and secured under fluoroscopic visualization. It was then locked proximally. Prior to placement, a guidewire was used to secure to place into the femoral head and neck to prevent rotation. The distal stab screw as then placed with excellent purchase. Final images were obtained and the wounds were copiously irrigated with sterile fashion. The fascia was closed with 0-Vicryl in an interrupted fashion, subcu with 2-0 Vicryl and the skin with stalin. The hip was injected with 0.25% Marcaine plain. Sterile dressings were applied. She was awoken from anesthesia and transferred to PACU in stable condition. POSTOPERATIVE PLAN: She will be weightbearing as tolerated. She will be given physical therapy today or tomorrow. DVT prophylaxis will be Lovenox for 6 weeks. She will be on 24 hours of postoperative antibiotics. We will follow her in the hospital and see her back 10 to 14 days postoperatively. [id number]/CPS #: [id number] MTDD
--- NOTE | 2017-08-28 13:48 | DS ---
CC: Dr. Belem Griffith DISCHARGE SUMMARY: DATE OF ADMISSION: 08/24/17 DATE OF DISCHARGE: 08/26/17 PROVIDER: Amber Vieyra NP ATTENDING PHYSICIAN: Dr. Aniyah Lamas (dictated provided by Amber Vieyra NP). PRIMARY CARE PROVIDER: Dr. Belem Griffith. PRIMARY DIAGNOSES: 1. Right hip pain. 2. Right hip fracture. SECONDARY DIAGNOSES: 1. Hypertension. 2. Gastroesophageal reflux disease. 3. Anxiety and depression. STUDIES WHILE IN THE HOSPITAL: 1. Chest x-ray on 08/23/17. Radiologist's impression: No evidence for acute cardiopulmonary diseas e. 2. On 08/23/17, hip and pelvis x-ray, radiologist's impression: Slightly displaced intertrochanteri c fracture of the right femur. 3. Knee x-ray on 08/23/17, impression: Limited study. No evidence for fracture of the right knee. 4. On 08/24/17, fluoroscopy report, impression: Intraoperative control films. There has been placem ent of a gamma nail and intramedullary edna expanding the fracture fragments. DISCHARGE MEDICATIONS: Patient will be discharged home on: 1. Docusate 200 mg p.o. b.i.d. 2. Lovenox 30 mg subcu q.24 hours. 3. Oxycodone/acetaminophen 5/325 one to two tablets p.o. q.4 to 6 hours as needed for pain. Continued home meds: 1. Vitamin B12 500 mcg daily. 2. Diovan 320/25. 3. Katerina 180 mg p.o. daily. 4. Flaxseed 1 tablet daily. 5. Fluticasone nasal spray 50 mcg 2 sprays both nares daily. 6. Lido cream 4% as needed. 7. Multivitamin 1 p.o. daily. 8. Omeprazole 20 mg p.o. daily. 9. Vitamin B6 50 mg daily. 10. Trazodone 50 mg p.o. at bedtime as needed. 11. Wellbutrin 300 mg p.o. q.a.m. HISTORY OF PRESENT ILLNESS AND HOSPITAL COURSE: Ms. Brady is a 61-year-old female with a history of hypertension and GERD, who was at home cleaning the ashes from coal stove when she tripped on the carpet landing on her right hip, experienced immediate severe pain with inability to bear weight. S he was transported to the emergency room by EMS. The patient was worse with movement and palpation o f the right hip. She denied any head injury or loss of consciousness. In the emergency room, she had x-rays of her hip and pelvis, which confirmed a right intertrochanteric femur fracture. She was see n and evaluated by Dr. Johnson of Orthopedics and she had a gamma nail repair of the right hip on 02/03. On 08/26/17, she was out of bed. She has been out of bed to the chair with PT. She is doing well. She has no complaints. She denies chest pain. She denies shortness of breath. She denies an y palpitations or lightheadedness. At this point, she is stable for discharge to home. She will be discharged home with home physical therapy. Ms. Brady is stable for discharge home today. Vital signs are as follows: Temperature was 97.4, heart rate was 103, respiratory rate 16, O2 sat 99% on room air. Blood pressure was 141/72. DISCHARGE PLAN: Ms. Brady will be discharged back home. ACTIVITY: As tolerated. DIET: She will be placed on a regular diet. In regards to her right hip fracture, she will follow up with Dr. Johnson in 10 to 14 days. She will follow up with her primary care doctor on 09/02/17 at 10:30 in the morning. She will have visiting n ursing service coming in 1 to 3 days. She is weightbearing as tolerated. Wound care, it is okay to shower. No bathing, swimming, or submerging wound. Mild soap and pat dry. Cover with gauze and cesar ly tape to hold the gauze. Call Orthopedics for increased drainage, redness, or increased pain or fe marcia. She is instructed to go to the ER for increased shortness of breath or chest pain. Diet, we wo uld like her to increase fiber to prevent constipation. She can continue her stool softeners. Ciro nue hip precautions. Do not cross legs or bend greater than 90 degrees. She will continue physical therapy and occupational therapy exercises as shown. The visiting nurse will do wound checks. She w ill be placed on Lovenox 30 mg daily for DVT prophylaxis. Pain control, she can take 1 Percocet ever y 4 to 6 hours as needed for moderate pain. She may take 2 tablets every 4 to 6 hours as needed for s evere pain. She may take Tylenol as needed for mild pain. Please note that Percocet contains Tyleno l and the maximum daily dose is 4000 mg. This was all explained to her and she verbalized understand ing. She is to follow up with Dr. Johnson in 2 weeks. Call the office for an appointment. This is a summary of her medical stay during the hospital. For further details, please see the [facility] record. TIME SPENT: Time spent on this discharge was approximately 60 minutes; greater than half the time wa s spent with the patient discussing discharge plans and instructions. CONDITION AT DISCHARGE: Stable. AMBER VIEYRA, ELIAZAR [id number]/CPS #: [id number]
== END 2017-08-26 14:45 | disposition home or self-care (01) | DRG 308 ==
LOC: ED 21:28 → MED 08-24 00:20 → SSU 08-24 17:10
PROVIDERS: ADMIT Hospitalist; ATTEND Orthopaedic Surgery
PROC: 0QS636Z Reposition Right Upper Femur with Intramedullary Internal Fixation Device, Percutaneous Approach (ICD-10-PCS; principal; 2017-08-24 13:45)
DX: S72.141A Displaced intertrochanteric fracture of right femur, initial encounter for closed fracture (principal); Z68.35 Body mass index [BMI] 35.0-35.9, adult; E66.9 Obesity, unspecified; I10 Essential (primary) hypertension; K21.9 Gastro-esophageal reflux disease without esophagitis; W01.0XXA Fall on same level from slipping, tripping and stumbling without subsequent striking against object, initial encounter; M17.0 Bilateral primary osteoarthritis of knee; K58.9 Irritable bowel syndrome, unspecified; M19.072 Primary osteoarthritis, left ankle and foot; M19.071 Primary osteoarthritis, right ankle and foot; G43.909 Migraine, unspecified, not intractable, without status migrainosus; K59.09 Other constipation; F41.9 Anxiety disorder, unspecified; F32.9 Major depressive disorder, single episode, unspecified; Z96.651 Presence of right artificial knee joint; Z87.891 Personal history of nicotine dependence; Z82.49 Family history of ischemic heart disease and other diseases of the circulatory system; Y93.E9 Activity, other interior property and clothing maintenance; Y92.009 Unspecified place in unspecified non-institutional (private) residence as the place of occurrence of the external cause; Z88.1 Allergy status to other antibiotic agents; Z80.3 Family history of malignant neoplasm of breast; Z87.442 Personal history of urinary calculi
CPT/HCPCS: 36415; 71045; 76000; 80048; 80053; 81003; 85014; 85018; 85025; 85049; 85610; 85730; 86850; 86900; 86901; 90686; 93005; A9270-GY; C1713; C1776; J1170; J1200; J1650; J2250; J2270; J2704; J3010

== ENCOUNTER 2019-02-16 05:49 | Day surgery (SDC) | payer BC ==
[~2019-02-16 05:49] MED LIST: Buffered Lidocaine 1% SYRIN* 1 ML/SYRINGE INTRADERM ONE
[2019-02-16] MEDS ORDERED: Gabapentin CAP(*) 300 MG PO ONE (06:00)
[2019-02-16] MEDS ORDERED: Lactated Ringers 1000 ML Bag* 1,000 ML IV SCH (06:00)
[2019-02-16] MEDS ORDERED: Acetaminophen TAB* 325 MG PO ONE (06:00)
[2019-02-16] MEDS ORDERED: Gabapentin CAP(*) 300 MG ONE (06:11)
[2019-02-16] MEDS ORDERED: ceFAZolin 2 GM in NS PREMIX(*) 2 GM/100 ML BAG IVPB ONE (06:12)
[2019-02-16] MEDS ORDERED: Acetaminophen TAB* 325 MG ONE (06:12)
[2019-02-16] MEDS ORDERED: Lidocaine 1% INJ* 10 MG/ML 30 ML SDV ONE (07:00)
[2019-02-16] MEDS ORDERED: fentaNYL* 50 MCG/ML 2 ML VIAL (100 MCG VIAL) ONE ×2 (07:11→08:04)
[2019-02-16] MEDS ORDERED: Midazolam* 1 MG/ML 2 ML VIAL (2 MG) ONE (07:11)
[2019-02-16] MEDS ORDERED: Famotidine IV* 10 MG/ML 2 ML (20 mg) ONE (07:25)
[2019-02-16] MEDS ORDERED: Bupivacaine 0.5%* 50 ML VIAL ONE (07:26)
[2019-02-16] MEDS ORDERED: Lidocaine 2% PF * 5 ML VIAL ONE (07:46)
[2019-02-16] MEDS ORDERED: Ketorolac INJ* 30 MG/ML 1 ML VIAL ONE (07:46)
[2019-02-16] MEDS ORDERED: Propofol* 10 MG/ML 20 ML BTL ONE (07:46)
[2019-02-16] MEDS ORDERED: Dexamethasone IV* 4 MG/ML 1 ML (4 MG) ONE (07:46)
[2019-02-16] MEDS ORDERED: Ondansetron INJ* 2 MG/ML VIAL IV PRN ×2 (07:50)
[2019-02-16] MEDS ORDERED: Naloxone* 0.4 MG/ML 1 ML VIAL IV PRN (07:50)
[2019-02-16] MEDS ORDERED: fentaNYL* 50 MCG/ML 2 ML VIAL (100 MCG VIAL) IV PRN ×2 (07:50)
[2019-02-16] MEDS ORDERED: diPHENhydraMINE IV* 50 MG/ML 1 ml VIAL (BENADRYL) IV PRN (07:50)
[2019-02-16] MEDS ORDERED: DiMENhydriNATE IV* 50 MG/ML VIAL IV PUSH PRN (07:50)
[2019-02-16] MEDS ORDERED: PROCHLORPERAZINE INJ 5 MG/ML 2 ML VIAL IV PRN (07:50)
[2019-02-16] MEDS ORDERED: HYDROcodone/ACETAMIN 5-325 MG* 1 TAB PO PRN (07:50)
[2019-02-16] MEDS ORDERED: CLINDAMYCIN 600 MG ONE (07:51)
[2019-02-16] MEDS ORDERED: IVPREMIX ONE (07:51)
[2019-02-16 09:51] VITALS: BP 145/92
--- NOTE | 2019-02-16 14:04 | OP ---
DATE OF OPERATION: 02/16/19 - [facility] DATE OF : 57 SURGEON: Dimas Rivas MD DIRECTOR LIFE SALES: Yanique Dominguez PA-C PRE-OP DIAGNOSIS: Right second and third fixed hammertoe deformity POST-OP DIAGNOSIS: Right second and third fixed hammertoe deformity OPERATIVE PROCEDURE: Right second and third hammertoe repair. DESCRIPTION OF PROCEDURE: The patient was taken to the operating room, where a transverse elliptical incisions were made over the dorsum of the PIP joints right second and third toes. We excised the skin flap as well as the extensor tendon over the PIP joint capsule releasing the collateral ligaments. We then removed the bone condyles with a microsagittal saw and pinned the toe in full extension longitudinally with a 0.62 C-wire. The exact same procedure was repeated for the third toe. Both were then irrigated thoroughly and closed dorsally with nylon sutures, and a compression dressing applied. [id number]/CPS #: [id number] MTDD
== END 2019-02-16 09:54 | disposition home or self-care (01) ==
LOC: OR 05:49
PROVIDERS: ATTEND Orthopaedic Surgery
DX: M20.41 Other hammer toe(s) (acquired), right foot (principal); I10 Essential (primary) hypertension; M19.90 Unspecified osteoarthritis, unspecified site; Z87.891 Personal history of nicotine dependence
CPT/HCPCS: 88304; 88311; A9270-GY; C1776; J0690; J1100; J1885; J2250; J2704; J3010; J3490

== ENCOUNTER 2019-06-01 05:50 | Inpatient (IN) | payer BC ==
[~2019-06-01 05:50] MED LIST changes: +Tranexamic Acid 1,000 MG in NS 0.9% 50 ML* (outpatient use) IV SCH
--- OUTSIDE RECORDS SUMMARY | 2019-06-01 05:53 | XMS REPORT | Continuity of Care Document ---
:1955 External Reference #:[id number] Author Name Rickey Angelo M.D. (transmitted by agent of provider Rufina Nava) Address [address] [place] [address] Care Team Providers Name Role Phone Belem Griffith MD - Internal Care Team Information Director Of Digital Technology [phone] Medicine Problems Active Problems Provider Date Essential hypertension Angella Duran N.PFlaquito Onset: 07/01/2015 Localized, primary osteoarthritis Rickey Angelo M.D. Onset: 05/24/2015 Arthroplasty of knee Rickey Angelo M.D. Onset: 08/24/2015 Strain of muscle, fascia and tendon of long Lupillo Johnson MD Onset: 2016 head of biceps, right arm, subsequent encounter Strain of muscle(s) and tendon(s) of the Lupillo Johnson MD Onset: 12/27/2016 rotator cuff of right shoulder, subsequent encounter Hammer toe Ronal Edwards MD Onset: 12/30/2017 Acquired hallux rigidus Ronal Edwards MD Onset: 12/30/2017 Displaced intertrochanteric fracture of right Lupillo Johnson MD Onset: 2017 femur, subsequent encounter for closed fracture with routine healing Closed fracture of neck of femur Lupillo Johnson MD Onset: 09/06/2017 Social History Type Date Description Comments Sex Unknown ETOH Use Currently consumes 4 - 6 per week alcohol Tobacco Use Start: Unknown End: Patient is a former Quit 08/29, Smoked 2 Unknown smoker cigarettes a day for 30 years on and off Smoking Status Reviewed: 05/20/19 Patient is a former Quit 08/29, Smoked 2 smoker cigarettes a day for 30 years on and off Exercise Exercises regularly 3 times weekly Type/Frequency Allergies, Adverse Reactions, Alerts Active Allergies Reaction Severity Comments Date Zithromax Allergic asthma, Urticaria Severe 06/07/2010 Erythromycin Allergic asthma, Urticaria Severe 06/07/2010 Medications Active Medications SIG Qnty Indications Ordering Date Provider Oxycodone HCL 1/2 to one 45caps M17.12 Rickey Joino, 05/20/2019 5mg tablets every 6 M.D. Capsules hours as needed for pain Cephalexin one tablet three 30tabs M20.41 Rickey Gi, 04/28/2019 500mg times a day x 10 M.D. Tablets days, generic Ok Gabapentin 1 by mouth every 30caps M54.32 Rickey Gi, 03/25/2019 300mg night at bedtime M.D. Capsules Bupropion Take 1 Tablet By 90tabs Angella Duran, 11/15/2018 Hydrochloride ER (XL) Mouth One Time N.P. Daily 300mg Tablets ER 24HR Ibuprofen 200 400-600mg every 6 Angella Varn, 09/05/2018 200mg hours as needed N.P. Tablets for pain. Valsartan-Hydrochloro 1 by mouth every 90tabs Angella Duran, 06/30/2018 thiazide day N.P. 80-12.5mg Tablets Miralax 17 grams by mouth 200GMS K59.00 Angella Duran, 06/30/2018 Powder every day as N.P. needed D3 Adult take one Angella uDran, 12/27/2017 capsule/tablet N.P. daily by mouth Calcium 600 + D 1 by mouth twice Angella Duran, 12/27/2017 a day N.P. [id number] Tablets Meloxicam Take 1 Tablet By 30tabs M19.042 Angella Duran, 12/27/2017 15mg Tablets Mouth Every Day N.P. Procto-Med HC Apply Topically 30units K64.8 Angella Duran, 10/29/2017 2.5% Two Times Daily N.P. Cream Fluticasone 2 sprays each 9.900ml J06.9 Angella Duran, 12/14/2016 Propionate nostril daily as N.P. 50mcg/Act needed Suspension Trazodone HCL Take 1 Tablet By 30tabs G47.09 Angella Duran, 11/04/2015 50mg Mouth AT Bedtime N.P. Tablets as Needed Triamcinolone Apply Two Times A 45units Angella Duran, 01/21/2012 Acetonide Day as Needed N.P. 0.1% Cream Fexofenadine HCL Take 1 Tablet 90tabs Belem 02/26/2011 180mg Daily Cotton, M.D. Tablets Tylenol 1-2 tablets daily Unknown 500mg Tablets as needed B12, B6 once a day Unknown Omeprazole take one capsule 60caps Angella Duran, 20mg by mouth once N.P. Capsules DR daily History Medications Keflex 1 by mouth 30caps M20.41 Dimas Rivas, 03/10/2019 - 500mg Capsules three times a M.D. 04/27/2019 day Oxycodone HCL 1 tabs by mouth 20tabs Dimas Rivas, 02/16/2019 - 5mg every 4-6 hours M.D. 04/27/2019 Tablets as needed Fluoxetine HCL 1 by mouth 90caps F32.9 Angella Duran, 12/29/2018 - 40mg every day N.P. 04/27/2019 Capsules Medications Administered in Office Medication SIG Qnty Indications Ordering Provider Date Depomedrol 40MG Rickey Angelo M.D. 01/14/2019 Injection Triamcinolone (Kenalog) Lupillo Johnson MD 11/08/2016 Injection Depomedrol 80MG Rickey Angelo M.D. 05/24/2015 Injection Depomedrol 80MG Rickey Angelo M.D. 05/17/2015 Injection Synvisc Or Synvisc-One Injection Rickey Angelo M.D. 12/27/2010 1 MG Injection Synvisc Or Synvisc-One Injection Rickey Angelo M.D. 12/20/2010 1 MG Injection Synvisc Or Synvisc-One Injection Rickey Angelo M.D. 12/13/2010 1 MG Injection Immunizations CPT Code Status Date Vaccine Lot # [id number] Given 06/04/2018 Influenza Virus Vaccine, Quadrivalent, Split, Preservative Free [id number] Given 08/08/2012 Tdap - Tetanus/Diptheria/Acellular Pertussis [id number] Vital Signs Date Vital Result Comment 05/20/2019 11:06am Height 65 inches 5'5" Weight 228.00 lb Heart Rate 100 /min BP Systolic 142 mmHg BP Diastolic 78 mmHg Body Temperature 99.1 F Pain Level 2 BMI (Body Mass Index) 37.9 kg/m2 04/28/2019 8:10am Height 65 inches 5'5" Weight 220.00 lb Heart Rate 100 /min BP Systolic 138 mmHg BP Diastolic 70 mmHg Respiratory Rate 18 /min Body Temperature 98.0 F Pain Level 0 BMI (Body Mass Index) 36.6 kg/m2 Results Test Date Facility Test Result H/L Range Note Laboratory test 02/16/2019 [facility] Surgical SEE RESULT [address] [place] [address] [phone] Ua Routine 12/29/2018 [employer] [employer] [facility] Ua Specific 1.020 Counselor Ua PH 5 Ua Color yellow Ua Appera clear Ua WBC neg Ua Protein neg Ua Glucose normal Ua Ketones neg Ua Bilirubin neg Ua Urobilinogen normal Ua Nitrite neg Ua Occult Blood neg Urine Culture And 12/29/2018 [facility] Urine Culture SEE RESULT [address] [place] [address] [phone] Lipid Profile 12/22/2018 [facility] Triglycerides 101 mg/dL 3 (Trig/Chol/HDL) [address] [place] [address] [phone] Cholesterol 183 mg/dL 4 HDL Cholesterol 74.8 mg/dL 5 LDL Cholesterol 88 mg/dL 6 Comp Metabolic 12/22/2018 [facility] Sodium 138 mmol/L Normal 135-[address] [place] [address] [phone] Potassium 4.9 mmol/L Normal 3.5-5.0 Chloride 106 mmol/L Normal 101-111 Co2 Carbon Dioxide 27 mmol/L Normal 22-32 Anion Gap 5 mmol/L Normal 2-11 Glucose 101 mg/dL High 70-100 Blood Urea Nitrogen 32 mg/dL High 6-24 Creatinine 0.64 mg/dL Normal 0.51-0.95 BUN/Creatinine Ratio 50.0 High 8-20 Calcium 9.8 mg/dL Normal 8.6-10.3 Total Protein 6.8 g/dL Normal 6.4-8.9 Albumin 4.3 g/dL Normal 3.2-5.2 Globulin 2.5 g/dL Normal 2-4 Albumin/Globulin Ratio 1.7 Normal 1-3 Total Bilirubin 0.60 mg/dL Normal 0.2-1.0 Alkaline Phosphatase 44 U/L Normal 34-104 Alt 30 U/L Normal 7-52 Ast 22 U/L Normal 13-39 Egfr Non- 94.0 >60 Egfr 113.8 >60 7 1 SEE RESULT BELOW Name: HAILEY BRADY : [address]: Dimas Rivas MD Acct: [id number] Unit: [id number] AGE: 63 Location: OR Re02/16/19 SEX: F Status: LILIAN CRUZ SPEC: [id number] CHEL: 02/16/[address] [facility] [address]: Dimas Rivas MD REQ: [id number] RECD: 02/16/19 STATUS: SOUT _ ORDERED: Mikayla, LEVEL 3 FINAL DIAGNOSIS Right foot bone cuts, excision: -- Osteocartilaginous cartilaginous articular fragments with degenerative osteoarthritic changes. -- Hyperplastic synovium with myxoid change and unremarkable acral skin. CLINICAL HISTORY No history given GROSS DESCRIPTION The specimen is received in formalin labeled, Right Foot Bone Cuts, and consists of a 1.9 x 1.4 x 0.4 cm aggregate of lopez-pink irregular bone fragments. A few of the fragments are partially surfaced by a glistening smooth lopez-pink articular surface. Received separately in the same container are two lopez-gan irregular volar skin ellipses measuring 1.8 x 0.8 cm excised to a depth of 0.5 cm and 2.0 x 0.6 cm excised to a depth of 0.2 cm. Engineer Specialist sections, one cassette following decalcification. Signed by and Reported on: Radu Verduzco MD 11/04 1453 END OF REPORT DEPARTMENT OF PATHOLOGY, [address] [place] [address] Radu Verduzco M.D. Director [facility] # [id number] 2 SEE RESULT BELOW Name: HAILEY BRADY : [address]: Angella Duran NP Acct: [id number] Unit: [id number] AGE: 63 Location: [facility] Re12/29/18 SEX: F Status: REG REF SPEC: [id number] CHEL: 12/29/18-[address] [facility] [address]: Angella Duran NP REQ: [id number] RECD: 12/29/18 STATUS: COMP _ SOURCE: URINE SPDESC: ORDERED: Urine Culture COMMENTS: [id number] Urine Source: Random Procedure Result Reported Site Urine Culture Final 12/30/181243 ML No Growth (<1,000 CFU/mL) * ML - Main Lab . END OF REPORT DEPARTMENT OF PATHOLOGY, [address] [place] [address] Radu Verduzco M.D. Director [facility] # [id number] 3 Desirable: <150 Borderline High: 150-199 High: 200-499 Very High: >500 4 Desirable: <200 Borderline High: 200-239 High: >239 5 Low: <40 Desirable: 40-60 High: >60 6 Desirable: <100 Near Optimal: 100-129 Borderline High: 130-159 High: 160-189 Very High: >189 7 Because ethnic data is not always readily available, this report includes an eGFR for both -Americans and non- Americans. The National Kidney Disease Education Program (NKDEP) does not endorse the use of the MDRD equation for patients that are not between the ages of 18 and 70, are , have extremes of body size, muscle mass, or nutritional status, or are non- or non-. According to the National Kidney Foundation, irrespective of diagnosis, the stage of the disease is based on the level of kidney function: Stage Description GFR(mL/min/1.73 m(2)) 1 Kidney damage with normal or decreased GFR 90 2 Kidney damage with mild decrease in GFR 60-89 3 Moderate decrease in GFR 30-59 4 Severe decrease in GFR 15-29 5 Kidney failure <15 (or dialysis) Procedures Date Code Description Status 02/16/2019 23951 Correction Hammertoe Completed 02/16/2019 95794 Correction Hammertoe Completed 02/16/2019 62263 Correction Hammertoe Completed 01/14/2019 40885 Inject/Drain Joint/Bursa Major W/O US Completed 10/21/2017 322438331 Bone Mineral Density Test Completed 04/02/2017 [id number] Colonoscopy Completed 01/01/2017 87567380 Mammogram Completed 01/10/2016 92408756 Mammogram Completed 01/07/2015 02579996 Mammogram Completed 01/02/2011 742387256 Diabetic Foot Exam Completed 12/21/2010 501392285 Diabetic Foot Exam Completed 12/11/2010 760560904 Diabetic Foot Exam Completed 07/12/2010 01843340 Mammogram Completed 05/27/2008 910611794 Bone Mineral Density Test Completed 03/20/2007 [id number] Colonoscopy Completed Medical Devices Description No Information Available Encounters Type Date Location Provider Dx Diagnosis Office Visit 03/25/2019 [facility] Rickey Angelo, M17.12 Unilateral primary 11:00a at [facility] osteoarthritis, left knee M54.32 Sciatica, left side Office Visit 01/14/2019 Ness Lang M17.12 Unilateral primary 9:00a Orthopedics warren Angelo M.D. osteoarthritis, left [place] knee Office Visit 01/13/2019 Ness Cochran M20.41 Other hammer toe(s) 8:00a Orthopedics warren Rivas M.D. (acquired), right [place] foot Office Visit 12/29/2018 [facility] Angella Z00.00 Encntr for general 9:20a Medicine - Ccmob Varn, N.P. adult medical exam w/o abnormal findings Z12.31 Encntr screen mammogram for malignant neoplasm of breast I10 Essential (primary) hypertension F32.9 Major depressive disorder, single episode, unspecified R35.0 Frequency of micturition M25.562 Pain in left knee M20.41 Other hammer toe(s) (acquired), right foot Assessments Date Code Description Provider 05/20/2019 M17.12 Unilateral primary osteoarthritis, left knee Rickey Angelo M.D. 04/28/2019 M20.41 Other hammer toe(s) (acquired), right foot Dimas Rivas M.D. 03/25/2019 M17.12 Unilateral primary osteoarthritis, left knee Rickey Angelo M.D. 03/25/2019 M54.32 Sciatica, left side Rickey Angelo M.D. 03/24/2019 M20.41 Other hammer toe(s) (acquired), right foot Dimas Rivas M.D. 03/10/2019 M20.41 Other hammer toe(s) (acquired), right foot Dimas Rivas M.D. 02/24/2019 M20.41 Other hammer toe(s) (acquired), right foot Dimas Rivas M.D. 02/16/2019 M20.41 Other hammer toe(s) (acquired), right foot DISHA Jessica 02/16/2019 M20.41 Other hammer toe(s) (acquired), right foot Dimas Rivas M.D. 02/03/2019 M20.41 Other hammer toe(s) (acquired), right foot Dimas Rivas M.D. 01/14/2019 M17.12 Unilateral primary osteoarthritis, left knee Rickey Angelo M.D. 01/13/2019 M20.41 Other hammer toe(s) (acquired), right foot Dimas Rivas M.D. 12/29/2018 Z00.00 Encounter for general adult medical Angella Duran, N.P. examination without abno 12/29/2018 Z12.31 Encounter for screening mammogram for Angella Duran, N.P. malignant neoplasm of 12/29/2018 I10 Essential (primary) hypertension Angella Varn, N.P. 12/29/2018 F32.9 Major depressive disorder, single episode, Angella Varn, N.P. unspecified 12/29/2018 R35.0 Frequency of micturition Angella Varn, N.P. 12/29/2018 M25.562 Pain in left knee Angella Duran, N.P. 12/29/2018 M20.41 Other hammer toe(s) (acquired), right foot Angella Varn, N.P. Plan of Treatment Future Appointment(s):06/01/2019 7:30 am - JERALD Henderson at [facility]06/01/2019 7:30 am - Rickey Angelo M.D. at [facility]05/26/2019 10:40 am - Angella Duran, N.P. at [facility]12/31/2019 10:00 am - Angella Duran, N.P. at [facility]07/01/2019 10:00 am - Angella Duran, N.P. at [facility]05/20/2019 - Rickey Angelo M.D.M17.12 Unilateral primary osteoarthritis, left kneeNew Medication:Oxycodone HCL 5 mg - 1/2 to one tablets every 6 hours as needed for painFollow up:Follow up: 4 weeks post-op Functional Status Description No Information Available Mental Status Description No Information Available Referrals Refer to Reason for Referral Status Appt Date Dimas Rivas MD Patient with hammer toe right 2nd toe referred Sent for evaluation and teatment. [address] [place] [address] [phone] Rickey Angelo MD Patient with left knee pain referred for Sent 01/14/2019 evaluation and treatment. [address] [place], [place] [id number] [phone]
--- OUTSIDE RECORDS SUMMARY | 2019-06-01 05:53 | XMS REPORT | Continuity of Care Document ---
:1955 External Reference #:[id number] Author Name Lisandro Jurado M.D. 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 Capsules hours as needed for pain Cephalexin one tablet three 30tabs M20.41 Rickey Angelo, 04/28/2019 500mg times a day x 10 M.D. Tablets days, generic [place] Gabapentin 1 by mouth every 30caps M54.32 Rickey Gi, 03/25/2019 300mg night at bedtime M.D. Capsules Bupropion Take 1 Tablet By 90tabs Angella Duran, 11/15/2018 Hydrochloride ER (XL) Mouth One Time N.P. Daily 300mg Tablets ER 24HR Ibuprofen 200 400-600mg every 6 Angella Duran, 09/05/2018 200mg hours as needed N.P. Tablets for pain. Valsartan-Hydrochloro 1 by mouth every 90tabs Angella Duran, 06/30/2018 thiazide day N.P. 80-12.5mg Tablets Miralax 17 grams by mouth 200GMS K59.00 Angella Varn, 06/30/2018 Powder every day as N.P. needed D3 Adult take one Angella Renee, 12/27/2017 capsule/tablet N.P. daily by mouth Calcium 600 + D 1 by mouth twice Angella Duran, 12/27/2017 a day N.P. [id number] Tablets Meloxicam Take 1 Tablet By 30tabs M19.042 Angella Renee, 12/27/2017 15mg Tablets Mouth Every Day N.P. [...] Triamcinolone Apply Two Times A 45units Angella Renee, 01/21/2012 Acetonide Day as Needed N.P. 0.1% Cream Fexofenadine HCL Take 1 Tablet 90tabs [place] 02/26/2011 180mg Daily Cotton, M.D. Tablets Tylenol 1-2 tablets daily Unknown 500mg Tablets as needed B12, B6 once a day Unknown Omeprazole take one capsule 60caps Angella Renee, 20mg by mouth once N.P. Capsules DR daily History Medications Keflex 1 by mouth 30caps M20.41 Dimas Rivas, 03/10/2019 - 500mg Capsules three times a M.D. 04/27/2019 day Oxycodone HCL 1 tabs by mouth 20tabs Dimas Rivas, 02/16/2019 - 5mg every 4-6 hours M.D. 04/27/2019 Tablets as needed Fluoxetine HCL 1 by mouth 90caps F32.9 Angella Renee, 12/29/2018 - 40mg every day N.P. 04/27/2019 [...] CPT Code Status Date Vaccine Lot # [id number] Given 06/04/2018 Influenza Virus Vaccine, Quadrivalent, Split, Preservative Free [id number] Given 08/08/2012 Tdap - Tetanus/Diptheria/Acellular Pertussis [id number] Vital Signs Date Vital Result Comment 05/20/2019 [...] Date Facility Test Result H/L Range Note Urinalysis Profile 05/20/2019 [facility] Urine Color Yellow [address] [place] [address] [phone] Urine Appearance Clear Urine Specific [place] 1.026 Normal 1.010-1.030 Urine pH 5.0 Normal 5-9 Urine Urobilinogen Negative Negative Urine Ketones Negative Negative Urine Protein Negative Negative Urine Leukocytes Negative Negative Urine Blood Negative Negative Urine Nitrite Negative Negative Urine Bilirubin Negative Negative Urine Glucose Negative Negative Inr/Protime 05/20/2019 [facility] Inr 0.92 Normal 0.82-1.[address] [place] [address] [phone] Laboratory test 05/20/2019 [facility] Partial 33.8 Normal 26.0 -38.[address] [place] [address] Time PTT [phone] CBC Auto Diff 05/20/2019 [facility] White Blood 8.3 10^3/uL Normal 3.5-10.[address] [place] [address] [phone] Red Blood Count 4.26 10^6/uL Normal 3.70-4.87 Hemoglobin 14.1 g/dL Normal 12.0-16.0 Hematocrit 42 % Normal 35-47 Mean Corpuscular Volume 99 fL High 80-97 Mean Corpuscular Hemoglobin 33 pg High 27-31 Mean Corpuscular HGB Conc 33 g/dL Normal 31-36 Red Cell Distribution Width 14 % Normal 10-15 Platelet Count 282 10^3/uL Normal 150-450 Mean Platelet Volume 9.2 fL Normal 7.4-10.4 Abs Neutrophils 5.2 10^3/uL Normal 1.5-7.7 Abs Lymphocytes 2.3 10^3/uL Normal 1.0-4.8 Abs Monocytes 0.5 10^3/uL Normal 0-0.8 Abs Eosinophils 0.3 10^3/uL Normal 0-0.6 Abs Basophils 0.1 10^3/uL Normal 0-0.2 Abs Nucleated RBC 0.0 10^3/uL Granulocyte % 62.5 % Lymphocyte % 28.0 % Monocyte % 5.6 % Eosinophil % 3.1 % Basophil % 0.8 % Nucleated Red Blood Cells % 0.0 Comp Metabolic 05/20/2019 [facility] Sodium 139 mmol/L Normal 135-[address] [place] [address] [phone] Potassium 4.2 mmol/L Normal 3.5-5.0 Chloride 106 mmol/L Normal 101-111 Co2 Carbon Dioxide 27 mmol/L Normal 22-32 Anion Gap 6 mmol/L Normal 2-11 Glucose 89 mg/dL Normal 70-100 Blood Urea Nitrogen 33 mg/dL High 6-24 Creatinine 0.60 mg/dL Normal 0.51-0.95 BUN/Creatinine Ratio 55.0 High 8-20 Calcium 9.7 mg/dL Normal 8.6-10.3 Total Protein 6.6 g/dL Normal 6.4-8.9 Albumin 4.2 g/dL Normal 3.2-5.2 Globulin 2.4 g/dL Normal 2-4 Albumin/Globulin Ratio 1.8 Normal 1-3 Total Bilirubin 0.60 mg/dL Normal 0.2-1.0 Alkaline Phosphatase 43 U/L Normal 34-104 Alt 33 U/L Normal 7-52 Ast 23 U/L Normal 13-39 Egfr Non- 101.3 >60 Egfr 122.6 >60 2 Laboratory test 05/20/2019 [facility] HCG 2.11 mIU/mL [address] [place] [address] [phone] Type & Screen 05/20/2019 [facility] Patient Blood O Positive [address] [place] [address] [phone] Antibody Screen NEGATIVE Laboratory test 02/16/2019 [facility] Surgical SEE RESULT [address] [place] [address] [phone] Ua Routine 12/29/2018 Licensed [employer] In House Ua Specific 1.020 [place] Ua PH 5 Ua Color yellow Ua Appera clear Ua WBC neg Ua Protein neg Ua Glucose normal Ua Ketones neg Ua Bilirubin neg Ua Urobilinogen normal Ua Nitrite neg Ua Occult Blood neg Urine Culture And 12/29/2018 [facility] Urine Culture SEE RESULT [address] [place] [address] [phone] Lipid Profile 12/22/2018 [facility] Triglycerides 101 mg/dL 6 (Trig/Chol/HDL) [address] [place] [address] [phone] Cholesterol 183 mg/dL 7 HDL Cholesterol 74.8 mg/dL 8 LDL Cholesterol 88 mg/dL 9 Comp Metabolic 12/22/2018 [facility] Sodium 138 mmol/L Normal 135-[address] [place] [address] [phone] Potassium 4.9 mmol/L Normal 3.5-5.0 Chloride 106 [...] Egfr Non- 94.0 >60 Egfr 113.8 >60 10 1 Standard intensity warfarin therapeutic range: 2.0-3.0 High intensity warfarin therapeutic range: 2.5-3.5 2 Because ethnic data is not always readily [...] 15-29 5 Kidney failure <15 (or dialysis) 3 <5.0 Negative 5.0 - 25.0 Indeterminate (Repeat testing recommended after 72 hours) >25.0 Positive Perimenopausal women can display HCG levels of up to 20 mIU/mL 4 SEE RESULT BELOW Name: HAILEY BRADY : [address]: Dimas Rivas MD Acct: [id number] Unit: [id number] AGE: 63 Location: OR Re02/16/19 SEX: F Status: [facility] SPEC: [id number] CHEL: 02/16/[address]: Dimas Rivas MD REQ: [id number] RECD: 02/16/191022 STATUS: SOUT _ ORDERED: Decal, LEVEL 3 FINAL DIAGNOSIS Right foot bone [...] excised to a depth of 0.2 cm. General Administrator sections, one cassette following decalcification. Signed by and Reported on: Radu Verduzco MD 11/04 1459 END OF REPORT DEPARTMENT OF PATHOLOGY, [address] [place] [address] Radu Verduzco M.D. Director [facility] # [id number] 5 SEE RESULT BELOW Name: HAILEY BRADY : [address]: Angella Duran NP Acct: [id number] Unit: [id number] AGE: 63 Location: [facility] Re12/29/18 SEX: F Status: REG REF SPEC: [id number] CHEL: 12/29/18-[address]: Angella Duran NP REQ: [id number] RECD: 12/29/18 STATUS: COMP _ SOURCE: URINE SPDESC: ORDERED: Urine Culture COMMENTS: [id number] Urine Source: Random Procedure Result Reported Site Urine Culture Final 12/30/18- 1244 ML No Growth (<1,000 CFU/mL) * ML - Main Lab . END OF REPORT DEPARTMENT OF PATHOLOGY, [address] [place] [address] Radu Verduzco M.D. Director [facility] # [id number] 6 Desirable: <150 Borderline High: 150-199 High: 200-499 Very High: >500 7 Desirable: <200 Borderline High: 200-239 High: >239 8 Low: <40 Desirable: 40-60 High: >60 9 Desirable: <100 Near Optimal: 100-129 Borderline High: 130-159 High: 160-189 Very High: >189 10 Because ethnic data is not always readily [...] dialysis) Procedures Date Code Description Status 02/16/2019 74491 Correction Hammertoe Completed 02/16/2019 06637 Correction Hammertoe Completed 02/16/2019 25972 Correction Hammertoe Completed 01/14/2019 33979 Inject/Drain Joint/Bursa Major W/O US Completed 10/21/2017 675091704 Bone Mineral Density Test Completed 04/02/2017 20793460 Colonoscopy Completed 01/01/2017 [id number] Mammogram Completed 01/10/2016 70138151 Mammogram Completed 01/07/2015 [id number] Mammogram Completed 01/02/2011 [id number] Diabetic Foot Exam Completed 12/21/2010 083306978 Diabetic Foot Exam Completed 12/11/2010 894038247 Diabetic Foot Exam Completed 07/12/2010 03216488 Mammogram Completed 05/27/2008 095391183 Bone Mineral Density Test Completed 03/20/2007 45496417 Colonoscopy Completed Medical Devices Description No Information Available Encounters Type Date Location Provider Dx Diagnosis Office Visit 03/25/2019 [facility] Rickey Angelo, M17.12 Unilateral primary 11:00a at [facility] osteoarthritis, left knee M54.32 Sciatica, left side Office Visit 01/14/2019 Ness Lang M17.12 Unilateral primary 9:00a [facility] [place] osteoarthritis, left Diagonal knee Office Visit 01/13/2019 Ness Cochran M20.41 Other hammer toe(s) 8:00a Orthopedics warren Rivas M.D. (acquired), right Diagonal foot Office Visit 12/29/2018 [facility] Internal Angella Z00.00 Encntr for general 9:20a Medicine - [place] Renee, N.P. adult medical exam w/o abnormal findings [...] M20.41 Other hammer toe(s) (acquired), right foot [place] 02/16/2019 M20.41 Other hammer toe(s) (acquired), right [...] of 12/29/2018 I10 Essential (primary) hypertension Angella Duran, N.P. 12/29/2018 F32.9 Major depressive disorder, single episode, Angella Robertsn, N.P. unspecified 12/29/2018 R35.0 Frequency of micturition Angella Duran, N.P. 12/29/2018 M25.562 Pain in left knee Angella Duran, N.P. 12/29/2018 M20.41 Other hammer toe(s) (acquired), right foot Angella Robertsn, N.P. Plan of Treatment Future Appointment(s):06/01/2019 7:30 am - JERALD Henderson at [facility]06/01/2019 7:30 am - Rickey Angelo M.D. at [facility]05/26/2019 10:40 am - Angella Duran, N.P. at [facility] Internal Medicine - [facility]12/31/2019 10:00 am - Angella Duran, N.P. at [facility] Internal Medicine - [facility]07/01/2019 10:00 am - Angella Duran, N.P. at [facility] Internal Medicine - [facility]05/20/2019 - Rickey Angelo M.D.M17.12 Unilateral primary osteoarthritis, [...] referred Sent for evaluation and teatment. [address] [place] [address] [phone] Rickey Angelo MD Patient with left knee pain referred for Sent 01/14/2019 evaluation and treatment. [address] [place] [address] [phone]
--- OUTSIDE RECORDS SUMMARY | 2019-06-01 05:53 | XMS REPORT | Continuity of Care Document ---
:1955 External Reference #:[id number] Author Name Angella Duran N.P. 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 Onset: 07/01/2015 Localized, primary osteoarthritis Rickey Angelo [...] years on and off Smoking Status Reviewed: 05/26/19 Patient is a former Quit 08/29, Smoked 2 smoker cigarettes a day for 30 years on and off Exercise Exercises regularly 3 times weekly Type/Frequency Allergies, Adverse Reactions, Alerts Active Allergies Reaction Severity Comments Date Zithromax Allergic asthma, Urticaria Severe 06/07/2010 Erythromycin Allergic asthma, Urticaria Severe 06/07/2010 Medications Active Medications SIG Qnty Indications Ordering Date Provider Valsartan-Hydrochloro 1 by mouth every 90tabs Angella Renee, 05/26/2019 thiazide day N.P. 160-25mg Tablets Oxycodone HCL 1/2 to one 45caps M17.12 Rikcey Joino, 05/20/2019 5mg tablets every 6 M.D. Capsules hours as needed for pain Gabapentin 1 by mouth every 30caps M54.32 Rickey Joino, 03/25/2019 300mg night at bedtime M.D. Capsules Bupropion Take 1 Tablet By 90tabs Angella Duran, 11/15/2018 Hydrochloride ER (XL) Mouth One Time N.P. Daily 300mg Tablets ER 24HR Ibuprofen 200 400-600mg every 6 Angella Renee, 09/05/2018 200mg hours as needed N.P. Tablets for pain. Miralax 17 grams by mouth 200GMS K59.00 Angella Varn, 06/30/2018 Powder every day as N.P. needed D3 Adult take one Angella Varn, 12/27/2017 capsule/tablet N.P. daily by mouth Calcium 600 + D 1 by mouth twice Angella Duran, 12/27/2017 a day N.P. [id number]-Hdce Tablets Meloxicam Take 1 Tablet By 30tabs M19.042 Angella Varn, 12/27/2017 15mg Tablets Mouth Every Day N.P. [...] 1 Tablet 90tabs Belem 02/26/2011 180mg Daily Prince Griffith Tablets Tylenol 1-2 tablets daily Unknown 500mg Tablets as needed B12, B6 once a day Unknown Omeprazole take one capsule 60caps Angella Duran, 20mg by mouth once N.P. Capsules DR daily History Medications Cephalexin one tablet three 30tabs M20.41 Rickey Angelo, 04/28/2019 - 500mg times a day x 10 M.D. 05/26/2019 Tablets days, generic Ok Keflex 1 by mouth three 30caps M20.41 Dimas Rivas, 03/10/2019 - 500mg times a day M.D. 04/27/2019 Capsules Oxycodone HCL 1 tabs by mouth 20tabs Dimas Rivas, 02/16/2019 - 5mg every 4-6 hours M.D. 04/27/2019 Tablets as needed Fluoxetine HCL 1 by mouth every 90caps F32.9 Angella Duran, 12/29/2018 - 40mg day N.P. 04/27/2019 Capsules Medications Administered in [...] CPT Code Status Date Vaccine Lot # [id number] Given 06/04/2018 Influenza Virus Vaccine, Quadrivalent, Split, Preservative Free [id number] Given 08/08/2012 Tdap - Tetanus/Diptheria/Acellular Pertussis [id number] Vital Signs Date Vital Result Comment 05/26/2019 10:32am Height 65 inches 5'5" Weight 228.38 lb Heart Rate 80 /min BP Systolic 156 mmHg Ra sitting BP Diastolic 100 mmHg Ra sitting BP Systolic Recheck 143 mmHg LA sitting BP Diastolic Recheck 91 mmHg LA sitting Body Temperature 97.2 F O2 % BldC Oximetry 99 % BMI (Body Mass Index) 38.0 kg/m2 05/20/2019 11:06am Height 65 inches 5'5" Weight 228.00 lb Heart Rate 100 /min BP Systolic 142 mmHg BP Diastolic 78 mmHg Body Temperature 99.1 F Pain Level 2 BMI (Body Mass Index) 37.9 kg/m2 Results Test Date Facility Test Result H/L Range Note Urinalysis Profile 05/20/2019 [facility] Urine Color Yellow [address] [place] [address] [phone] Urine Appearance Clear Urine Specific [place] 1.026 Normal 1.010-1.030 Urine pH 5.0 Normal 5-9 Urine Urobilinogen Negative Negative Urine Ketones Negative Negative Urine Protein Negative Negative Urine Leukocytes Negative Negative Urine Blood Negative Negative Urine Nitrite Negative Negative Urine Bilirubin Negative Negative Urine Glucose Negative Negative Inr/Protime 05/20/2019 [facility] Inr 0.92 Normal 0.82-1.[address] [place] [address] [phone] Laboratory test 05/20/2019 [facility] Partial 33.8 Normal 26.0 -38.[address] [address] Time PTT [phone] CBC Auto Diff 05/20/2019 [facility] White Blood 8.3 10^3/uL Normal 3.5-10.[address] [place] [address] [phone] Red Blood Count 4.26 10^6/uL Normal 3.70-4.87 [...] Blood Cells % 0.0 Comp Metabolic 05/20/2019 [facility] Sodium 139 mmol/L Normal 135-[address] [place] [address] [phone] Potassium 4.2 mmol/L Normal 3.5-5.0 Chloride 106 [...] Egfr 122.6 >60 2 Laboratory test 05/20/2019 [facility] HCG 2.11 mIU/mL [address] [place] [address] [phone] Type & Screen 05/20/2019 [facility] Patient Blood O Positive [address] [place] [address] [phone] Antibody Screen NEGATIVE Urine Culture And 05/20/2019 [facility] Urine Culture SEE RESULT [address] [place] [address] [phone] Laboratory test 02/16/2019 [facility] Surgical SEE RESULT [address] [address] [phone] Ua Routine 12/29/2018 Poly Area Supervisor In House Ua Specific 1.020 [place] Ua PH 5 Ua Color yellow Ua Appera clear Ua WBC neg Ua Protein neg Ua Glucose normal Ua Ketones neg Ua Bilirubin neg Ua Urobilinogen normal Ua Nitrite neg Ua Occult Blood neg Urine Culture And 12/29/2018 [facility] Urine Culture SEE RESULT [address] [place] [address] [phone] Lipid Profile 12/22/2018 [facility] Triglycerides 101 mg/dL 7 (Trig/Chol/HDL) [address] [place] [address] [phone] Cholesterol 183 mg/dL 8 HDL Cholesterol 74.8 mg/dL 9 LDL Cholesterol 88 mg/dL 10 Comp Metabolic 12/22/2018 [facility] Sodium 138 mmol/L Normal 135-[address] [place] [address] [phone] Potassium 4.9 mmol/L Normal 3.5-5.0 Chloride 106 [...] Egfr Non- 94.0 >60 Egfr 113.8 >60 11 1 Standard intensity warfarin therapeutic range: 2.0-3.0 [...] Name: HAILEY BRADY : [address]: Rickey Angelo MD Acct: [id number] Unit: [id number] AGE: 63 Location: [facility] Re05/20/19 SEX: F Status: REG REF SPEC: [id number] CHEL: 05/20/19-[address]: Rickey Angelo MD REQ: [id number] RECD: 05/20/19 STATUS: COMP _ SOURCE: URINE SPDES: ORDERED: Urine Culture QUERIES: Urine Source: Random Procedure Result Reported Site Urine Culture Final 05/21/19- 1609 ML No Growth (<1,000 CFU/mL) * ML - Main Lab . END OF REPORT DEPARTMENT OF PATHOLOGY, [address] [place] [address] Radu Verduzco M.D. Director [facility] # [id number] 5 SEE RESULT BELOW Name: HAILEY BRADY : [address]: Dimas Rivas MD Acct: [id number] Unit: [id number] AGE: 63 Location: OR Re02/16/19 SEX: F Status: [facility] SPEC: [id number] CHEL: 02/16/[address] [facility] [address]: Dimas Rivas MD REQ: [id number] RECD: 02/16/19 STATUS: SOUT _ ORDERED: Decal, LEVEL 3 [...] excised to a depth of 0.2 cm. Administrative Resident sections, one cassette following decalcification. Signed by and Reported on: Radu Verduzco MD 11/04 8501 END OF REPORT DEPARTMENT OF PATHOLOGY, [address] [place] [address] Radu Verduzco M.D. Director [facility] # [id number] 6 SEE RESULT BELOW Name: HAILEY BRADY : [address]: Angella Duran NP Acct: [id number] Unit: [id number] AGE: 63 Location: [facility] Re12/29/18 SEX: F Status: REG REF SPEC: [id number] CHEL: 12/29/18-[address]: Angella Duran NP REQ: [id number] RECD: 12/29/181247 STATUS: COMP _ SOURCE: URINE SPDESC: ORDERED: Urine Culture COMMENTS: [id number] Urine Source: Random Procedure Result Reported Site Urine Culture Final 12/30/18- 1244 ML No Growth (<1,000 CFU/mL) * ML - Main Lab . END OF REPORT DEPARTMENT OF PATHOLOGY, [address] [place] [address] Radu Verduzco M.D. Director [facility] # [id number] 7 Desirable: <150 Borderline High: 150-199 High: 200-499 Very High: >500 8 Desirable: <200 Borderline High: 200-239 High: >239 9 Low: <40 Desirable: 40-60 High: >60 10 Desirable: <100 Near Optimal: 100-129 Borderline High: 130-159 High: 160-189 Very High: >189 11 Because ethnic data is not always readily [...] dialysis) Procedures Date Code Description Status 02/16/2019 64588 Correction Hammertoe Completed 02/16/2019 01560 Correction Hammertoe Completed 02/16/2019 26703 Correction Hammertoe Completed 01/14/2019 20228 Inject/Drain Joint/Bursa Major W/O US Completed 10/21/2017 288208921 Bone Mineral Density Test Completed 04/02/2017 49317036 Colonoscopy Completed 01/01/2017 37612142 Mammogram Completed 01/10/2016 62178279 Mammogram Completed 01/07/2015 [id number] Mammogram Completed 01/02/2011 649942253 Diabetic Foot Exam Completed 12/21/2010 279561402 Diabetic Foot Exam Completed 12/11/2010 328339074 Diabetic Foot Exam Completed 07/12/2010 [id number] Mammogram Completed 05/27/2008 554213132 Bone Mineral Density Test Completed 03/20/2007 07391409 Colonoscopy Completed Medical Devices Description No Information Available Encounters Type Date Location Provider Dx Diagnosis Office Visit 03/25/2019 [facility] Rickey Angelo M17.12 Unilateral primary 11:00a at [facility] osteoarthritis, left knee M54.32 Sciatica, left side Office Visit 01/14/2019 Ness Lang M17.12 Unilateral primary 9:00a Orthopedics warren Angelo M.D. osteoarthritis, left Jackson knee Office Visit 01/13/2019 Ness Cochran M20.41 Other hammer toe(s) 8:00a Orthopedics warren Rivas M.D. (acquired), right Jackson foot Office Visit 12/29/2018 Jan Perales Z00.00 Encntr for general 9:20a Medicine - Ccmob Varn, N.P. adult medical exam w/o abnormal findings Z12.31 Encntr screen mammogram for malignant neoplasm of breast I10 Essential (primary) hypertension F32.9 Major depressive disorder, single episode, unspecified R35.0 Frequency of micturition M25.562 Pain in left knee M20.41 Other hammer toe(s) (acquired), right foot Assessments Date Code Description Provider 05/26/2019 Z01.818 Encounter for other preprocedural examination Angella Duran N.P. 05/26/2019 M17.12 Unilateral primary osteoarthritis, left knee Angella Duran N.P. 05/26/2019 I10 Essential (primary) hypertension Angella Duran N.P. 05/20/2019 M17.12 Unilateral primary osteoarthritis, left knee [...] Other hammer toe(s) (acquired), right foot Yanique Dominguez RPA-Martha 02/16/2019 M20.41 Other hammer toe(s) (acquired), right foot Dimas Rivas M.D. 02/03/2019 M20.41 Other hammer toe(s) (acquired), right foot Dimas Rivas M.D. 01/14/2019 M17.12 Unilateral primary osteoarthritis, left knee Rickey Angelo M.D. 01/13/2019 M20.41 Other hammer toe(s) (acquired), right foot Dimas Rivas M.D. 12/29/2018 Z00.00 Encounter for general adult medical Angella Duran N.P. examination without abno 12/29/2018 Z12.31 Encounter for screening mammogram for Angella Duran, N.P. malignant neoplasm of 12/29/2018 I10 Essential (primary) hypertension Angella Duran, N.P. 12/29/2018 F32.9 Major depressive disorder, single episode, Angella Duran, N.P. unspecified 12/29/2018 R35.0 Frequency of micturition Angella Duran, N.P. 12/29/2018 M25.562 Pain in left knee Angella Duran, N.P. 12/29/2018 M20.41 Other hammer toe(s) (acquired), right foot Angella Duran, N.P. Plan of Treatment Future Appointment(s):06/01/2019 7:30 am - JERALD Henderson at [facility] at [email or web address]/01/2019 7:30 am - Rickey Angelo M.D. at [facility] at [id number]/31/2019 10:00 am - Angella Duran, N.P. at [facility] - [facility]07/01/2019 10:00 am - Angella Duran N.P. at [facility] - [facility]05/26/2019 - Angella Duran N.P.Z01.818 Encounter for other preprocedural examinationComments:I am ordering some routine preoperative lab work. The office will contact you with your results. I am ordering some routine preoperative lab work. The office will contact you with your results. You maytake all of your usual medications the morning of your surgery, unless your surgeon tells you otherwise. Please stop taking Aspirin, or Aspirin like products and all supplements for 1 week prior to your surgery.M17.12 Unilateral primary osteoarthritis, left kneeI10 Essential (primary) hypertensionComments: For your high blood pressure: I have increased your dose of Valsartan Hct to 160/25 mg. Take 1 tablet every morning. Functional Status Description No Information Available Mental Status Description No Information Available Referrals Refer to Reason for Referral Status Appt Date Dimas Rivas MD Patient with hammer toe right 2nd toe referred Sent for evaluation and teatment. [address] [facility] [place] [address] [phone] Rickey Angelo MD Patient with left knee pain referred for Sent 01/14/2019 evaluation and treatment. 16 [place] [address] [phone]
--- OUTSIDE RECORDS SUMMARY | 2019-06-01 05:53 | XMS REPORT | Continuity of Care Document ---
:1955 External Reference #:[id number] Author Name Dimas Rivas M.D. (transmitted by agent of provider Rufina Nava) Address [address] [facility] [place] [address] Care Team Providers Name Role Phone Belem Griffith MD - Internal Care Team Information Display Manager Medicine Problems Active Problems Provider Date Essential [...] years on and off Smoking Status Reviewed: 04/28/19 Patient is a former Quit 08/29, Smoked 2 smoker cigarettes a day for 30 years on and off Exercise Exercises regularly 3 times weekly Type/Frequency Allergies, Adverse Reactions, Alerts Active Allergies Reaction Severity Comments Date Zithromax Allergic asthma, Urticaria Severe 06/07/2010 Erythromycin Allergic asthma, Urticaria Severe 06/07/2010 Keflex Allergic asthma, Urticaria Severe 05/17/2015 Medications Active Medications SIG Qnty Indications Ordering Date Provider Cephalexin M20.41 Opal Marshall, 04/28/2019 500mg PA Tablets Gabapentin 1 by mouth every 30caps M54.32 Rickey Angelo, 03/25/2019 300mg night at bedtime M.D. Capsules Bupropion Take 1 Tablet By 90tabs Angella Varn, 11/15/2018 Hydrochloride ER (XL) Mouth One Time N.P. Daily 300mg Tablets ER 24HR Ibuprofen 200 400-600mg every 6 Angella Varn, 09/05/2018 200mg hours as needed N.P. Tablets for pain. Valsartan-Hydrochloro 1 by mouth every 90tabs Angella Varn, 06/30/2018 thiazide day N.P. 80-12.5mg Tablets Miralax 17 grams by mouth 200GMS K59.00 Angella Varn, 06/30/2018 Powder every day as N.P. needed D3 Adult take one Angella Varn, 12/27/2017 capsule/tablet N.P. daily by mouth Calcium 600 + D 1 by mouth twice Angella Varn, 12/27/2017 a day N.P. 276-990ae-Gqkg Tablets Meloxicam Take 1 Tablet By 30tabs M19.042 Angella Varn, 12/27/2017 15mg Tablets Mouth Every Day N.P. Procto-Med HC Apply Topically 30units K64.8 Angella Varn, 10/29/2017 2.5% Two Times Daily N.P. Cream Fluticasone 2 sprays each 9.900ml J06.9 Angella Varn, 12/14/2016 Propionate nostril daily as N.P. 50mcg/Act needed Suspension Trazodone HCL Take 1 Tablet By 30tabs G47.09 Angella Varn, 11/04/2015 50mg Mouth AT Bedtime N.P. Tablets as Needed Triamcinolone Apply Two Times A 45units Angella Varbjorn, 01/21/2012 Acetonide Day as Needed N.P. 0.1% [...] CPT Code Status Date Vaccine Lot # 65039 Given 06/04/2018 Influenza Virus Vaccine, Quadrivalent, Split, Preservative Free 62345 Given 08/08/2012 Tdap - Tetanus/Diptheria/Acellular Pertussis [id number] Vital Signs Date Vital Result Comment 04/28/2019 8:10am Height 65 inches 5'5" Weight 220.00 lb Heart Rate 100 /min BP Systolic 138 mmHg BP Diastolic 70 mmHg Respiratory Rate 18 /min Body Temperature 98.0 F Pain Level 0 BMI (Body Mass Index) 36.6 kg/m2 03/25/2019 10:58am Height 65 inches 5'5" Weight 232.00 lb Heart Rate 69 /min BP Systolic 146 mmHg BP Diastolic 82 mmHg Body Temperature 98.8 F Pain Level 6 BMI (Body Mass Index) 38.6 kg/m2 Results Test Date Facility Test Result H/L Range Note Laboratory test 02/16/2019 [facility] Surgical SEE RESULT [address] [place] [address] [phone] Ua 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 Ua Specific 1.020 [place] Ua PH 5 Ua Color yellow Ua Appera clear Ua WBC neg Ua Protein neg Ua Glucose normal Ua Ketones neg Ua Bilirubin neg Ua Urobilinogen normal Ua Nitrite neg Ua Occult Blood neg Urine Culture And 12/29/2018 [facility] Urine Culture SEE RESULT [address] [place] [address] [phone] Lipid Profile 12/22/2018 [facility] Triglycerides 101 mg/dL 3 (Trig/Chol/HDL) [address] [place] [address] [phone] Cholesterol 183 mg/dL 4 HDL Cholesterol 74.8 mg/dL 5 LDL Cholesterol 88 mg/dL 6 Comp Metabolic 12/22/2018 [facility] Sodium 138 mmol/L Normal 135-[address] [place] [address] [phone] Potassium 4.9 mmol/L Normal 3.5-5.0 Chloride 106 [...] 7 1 SEE RESULT BELOW Name: HAILEY NAPOLES : [address]: Dimas Rivas MD Acct: [id number] Unit: [id number] AGE: 63 Location: OR Re02/16/19 SEX: F Status: LILIAN CRUZ SPEC: [id number] CHEL: 02/16/[address]: Dimas Rivas MD REQ: [id number] RECD: 02/16/19 STATUS: SOUT _ ORDERED: Decal, [...] excised to a depth of 0.2 cm. Application Development Director sections, one cassette following decalcification. Signed by and Reported on: Radu Verduzco MD 11/04 1459 END OF REPORT DEPARTMENT OF PATHOLOGY, [address] [place] [address] Radu Verduzco M.D. Director [facility] # [id number] 2 SEE RESULT BELOW Name: HAILEY NAPOLES : [address]: Angella Duran NP Acct: [id number] Unit: [id number] AGE: 63 Location: [facility] Re12/29/18 SEX: F Status: REG REF SPEC: [id number] CHEL: 12/29/18 [facility] DR: Angella Duran NP REQ: [id number] RECD: 12/29/18 STATUS: COMP _ SOURCE: URINE SPDESC: ORDERED: Urine Culture COMMENTS: [id number] Urine Source: Random Procedure Result Reported Site Urine Culture Final 12/30/18- 1243 ML No Growth (<1,000 CFU/mL) * ML - Main Lab . END OF REPORT DEPARTMENT OF PATHOLOGY, [address] [place] [address] Radu Verduzco M.D. Director [facility] # [id number] 3 Desirable: <150 Borderline High: 150-199 High: [...] dialysis) Procedures Date Code Description Status 02/16/2019 48796 Correction Hammertoe Completed 02/16/2019 18359 Correction Hammertoe Completed 02/16/2019 75073 Correction Hammertoe Completed 01/14/2019 92658 Inject/Drain Joint/Bursa Major W/O US Completed 10/21/2017 634753158 Bone Mineral Density Test Completed 04/02/2017 46686689 Colonoscopy Completed 01/01/2017 77277144 Mammogram Completed 01/10/2016 38335127 Mammogram Completed 01/07/2015 80185052 Mammogram Completed 01/02/2011 527243812 Diabetic Foot Exam Completed 12/21/2010 887616551 Diabetic Foot Exam Completed 12/11/2010 663461295 Diabetic Foot Exam Completed 07/12/2010 47759862 Mammogram Completed 05/27/2008 697440312 Bone Mineral Density Test Completed 03/20/2007 [id number] Colonoscopy Completed Medical Devices Description No Information Available Encounters Type Date Location Provider Dx Diagnosis Office Visit 03/25/2019 Orthopedic Rickey Angelo M17.12 Unilateral primary 11:00a [facility] osteoarthritis, left knee M54.32 Sciatica, left side Office Visit 01/14/2019 Orthopedic Rickey M17.12 Unilateral primary 9:00a [facility] Angelo osteoarthritis, left C.M.A. knee Office Visit 01/13/2019 Orthopedic Dimas M20.41 Other hammer toe(s) 8:00a [facility] Rivas (acquired), right C.M.A. foot Office Visit 12/29/2018 [facility] Internal Angella Duran, Z00.00 Encntr for general 9:20a Medicine - Ccmob N.P. adult medical exam w/o abnormal findings Z12.31 Encntr screen mammogram for malignant neoplasm of breast I10 Essential (primary) hypertension F32.9 Major depressive disorder, single episode, unspecified R35.0 Frequency of micturition M25.562 Pain in left knee M20.41 Other hammer toe(s) (acquired), right foot Assessments Date Code Description Provider 04/28/2019 M20.41 Other hammer toe(s) (acquired), right [...] Z12.31 Encounter for screening mammogram for Angella Duran N.P. malignant neoplasm of 12/29/2018 I10 Essential (primary) hypertension Angella Duran, N.P. 12/29/2018 F32.9 Major depressive disorder, single episode, Angella Duran, N.P. unspecified 12/29/2018 R35.0 Frequency of micturition Angella Duran, N.P. 12/29/2018 M25.562 Pain in left knee Angella Duran, N.P. 12/29/2018 M20.41 Other hammer toe(s) (acquired), right foot Angella Duran N.P. Plan of Treatment Future Appointment(s):06/01/2019 10:00 am - Rickey Angelo M.D. at [facility]05/26/2019 10:40 am - Angella Duran N.P. at [facility] Internal Medicine - [facility]05/20/2019 11:00 am - Rickey Angelo M.D. at [facility]12/31/2019 10:00 am - Angella Duran N.P. at [facility] - [facility]07/01/2019 10:00 am - Angella Duran N.P. at [facility] - [facility]04/28/2019 - Dimas Rivas M.D.M20.41 Other hammer toe(s) ( acquired), right footNew Medication:Cephalexin 500 mg -Follow up:Follow up: PRN - Keflex for swelling, redness Functional Status Description No Information Available Mental Status Description No Information Available Referrals Refer to Dr Reason for Referral Status Appt Date Dimas Riavs MD Patient with hammer toe right 2nd toe referred Sent for evaluation and teatment. [address] [place] [address] [phone] Rickey Angelo MD Patient with left knee pain referred for Sent 01/14/2019 evaluation and treatment. 16 [place] [address] [phone]
[2019-06-01] MEDS ORDERED: Gabapentin CAP(*) 300 MG PO ONE (06:00)
[2019-06-01] MEDS ORDERED: celeCOXIB CAP* 200 MG PO ONE (06:00)
[2019-06-01] MEDS ORDERED: Famotidine IV* 10 MG/ML 2 ML (20 mg) IV ONE (06:00)
[2019-06-01] MEDS ORDERED: Acetaminophen TAB* 325 MG PO ONE (06:00)
[2019-06-01] MEDS ORDERED: Ondansetron ODT TAB* 4 MG PO ONE (06:00)
[2019-06-01] MEDS ORDERED: Lactated Ringers 1000 ML Bag* 1,000 ML IV SCH (06:00)
[2019-06-01] MEDS ORDERED: Dexamethasone TAB* 4 MG PO ONE (06:00)
[2019-06-01] MEDS ORDERED: Dexamethasone TAB* 4 MG ONE (06:04)
[2019-06-01] MEDS ORDERED: Gabapentin CAP(*) 300 MG ONE (06:04)
[2019-06-01] MEDS ORDERED: Acetaminophen TAB* 325 MG ONE (06:04)
[2019-06-01] MEDS ORDERED: Ondansetron ODT TAB* 4 MG ONE (06:04)
[2019-06-01] MEDS ORDERED: ceFAZolin 2 GM PREMIX in ORs 2 GM/50 ML BAG ONE (06:05)
[2019-06-01] MEDS ORDERED: celeCOXIB CAP* 200 MG ONE (06:05)
[2019-06-01] MEDS ORDERED: Famotidine IV* 10 MG/ML 2 ML (20 mg) ONE (06:35)
[2019-06-01] MEDS ORDERED: ROPIVACAINE 5 MG/ML 30 ML BTL (0.5%) ONE (07:15)
[2019-06-01] MEDS ORDERED: Midazolam* 1 MG/ML 5 ML VIAL (5 MG) ONE (07:17)
[2019-06-01] MEDS ORDERED: fentaNYL* 50 MCG/ML 2 ML VIAL (100 MCG VIAL) ONE (07:19)
[2019-06-01] MEDS ORDERED: Midazolam* 1 MG/ML 2 ML VIAL (2 MG) ONE (07:19)
[2019-06-01] MEDS ORDERED: Propofol* 500 MG/50 ML BTL ONE (08:00)
[2019-06-01] MEDS ORDERED: Bupivacaine 0.5% SDV PF* 30ML VIAL ONE (08:00)
[2019-06-01] MEDS ORDERED: Phenylephrine 40 MCG/ML SYRINGE ONE (08:20)
[2019-06-01] MEDS ORDERED: Bupivacaine 0.25% EPI 200,000* 30 ML SDV ONE (08:23)
[2019-06-01] MEDS ORDERED: Naloxone* 0.4 MG/ML 1 ML VIAL IV PRN (08:33)
[2019-06-01] MEDS ORDERED: HYDROmorphone INJ1* 1 MG/ML SYRINGE IV PRN (08:33)
[2019-06-01] MEDS ORDERED: DiMENhydriNATE IV* 50 MG/ML VIAL IV PUSH PRN (08:33)
[2019-06-01] MEDS ORDERED: PROCHLORPERAZINE INJ 5 MG/ML 2 ML VIAL IV PRN (08:33)
[2019-06-01] MEDS ORDERED: fentaNYL* 50 MCG/ML 2 ML VIAL (100 MCG VIAL) IV PRN (08:33)
[2019-06-01] MEDS ORDERED: Propofol* 10 MG/ML 20 ML BTL ONE ×2 (09:10→09:49)
[2019-06-01] MEDS ORDERED: oxyCODONE/Acetamin 5/325 MG* TAB PO PRN (10:37)
[2019-06-01] MEDS ORDERED: Morphine INJ* 2 MG/ML 1 ML SYRINGE (TWO MG - NEW SYRINGE VERSION) IV PRN (10:37)
[2019-06-01] MEDS ORDERED: Magnesium Hydroxide LIQ* 30 ML UDC PO PRN (10:37)
[2019-06-01] MEDS ORDERED: diPHENhydraMINE IV* 50 MG/ML 1 ml VIAL (BENADRYL) IV PRN (10:37)
[2019-06-01] MEDS ORDERED: Acetaminophen TAB* 325 MG PO PRN (10:37)
[2019-06-01] MEDS ORDERED: Ondansetron INJ* 2 MG/ML VIAL IV PRN (10:37)
[2019-06-01] MEDS ORDERED: diPHENhydraMINE PO* 25 MG PO PRN (10:37)
[2019-06-01] MEDS ORDERED: Ondansetron ODT TAB* 4 MG PO PRN (10:37)
[2019-06-01] MEDS ORDERED: Fluticasone NASAL SPRAY 50MCG* 16 gm SPRAY BTL BOTH NARES PRN (10:47)
[2019-06-01] MEDS ORDERED: traZODone TAB* 50 MG TAB PO PRN (10:47)
--- NOTE | 2019-06-01 12:16 | PN ---
Progress Note - Progress Note Date of Service: 06/01/19 Note: In PACU patient had c/o left shoulder pain. She had some ttenderness to movement , no SOB. The patient had concern this could be cardiac, a 12 lead EKG was done , no evidence of ischemia. The patient was reassured that her shoulder pain was probably secondary to being positioned in the same manner for a couple hours.
[2019-06-01] MEDS: Cyclobenzaprine TAB* 10 MG PO PRN ×2 (13:24→19:24)
[2019-06-01] MEDS: Lactated Ringers 1000 ML Bag* 1,000 ML IV SCH (13:24)
[2019-06-01] MEDS: oxyCODONE TAB* 5 MG TAB PO PRN ×3 (14:00→23:21)
--- NOTE | 2019-06-01 14:19 | OP ---
DATE OF OPERATION: 06/01/19 - ROOM #346 DATE OF : 57 SURGEON: Rickey Angelo MD CLINICAL SERVICES DIRECTOR: Wilton Olmstead RPA ANESTHESIA: Spinal and sedation. PRE-OP DIAGNOSIS: Osteoarthritis, left knee. POST-OP DIAGNOSIS: Osteoarthritis, left knee. OPERATIVE PROCEDURE: Left total knee arthroplasty. ESTIMATED BLOOD LOSS: Less than 50 cc. COMPLICATIONS: None. HARDWARE: Navio-assisted De and Nephew 6 narrow Oxinium Legion femur, #4 Suly II tibia, high-flex 9 mm polyethylene, 32 mm polyethylene button. INDICATIONS: Ms. Brady is a 63-year-old female, who has had history of troubles with both of her knees. She had previously undergone a right total knee arthroplasty and done quite well with this. The left knee had not been as bothersome, but slowly it has become more painful and limiting and she is very interested in a left total knee arthroplasty. Risks of surgery such as infection, scar formation, stiffness, DVT, pulmonary embolism, hardware failure , and continued pain were some of the risks discussed. She had been declared medically optimized and wished to proceed. DESCRIPTION OF PROCEDURE: The patient had a femoral block placed in the holding area and was brought back to the OR. Spinal anesthesia was introduced. Huntley catheter was placed. Tourniquet was placed over the proximal left thigh and was used during the case. Total tourniquet time would be 90 minutes. Left knee was prepped and then draped. Esmarch was used to exsanguinate the leg and the tourniquet was raised. Midline incision was made beginning just medial to the tibial tubercle and carried about 4 fingerbreadths just above the superior pole of the patella. Incision was carried down through the skin and subcutaneous tissues. Small bleeders encountered were ligated using electro- cautery. Extensor mechanism was exposed and a sharp parapatellar arthrotomy was made. Clear yellowish joint fluid gushed forward. Soft tissues were sharply elevated from the medial side of the tibia and the fat pad was sharply excised. Patella measured 14 mm at the medial edge and only 11 mm at the most lateral edge and a nice cut was taken leaving approximately 11 to 12 mm throughout. Patella was then easily subluxated laterally and the knee was flexed up. Nice exposure of the distal femur was obtained. Tibial pins were then placed and the array assembled and in similar fashion, femoral pins were placed and the array assembled. Femoral pin and tibial pin separately were also placed and the Navio array was then used for the input for each of the different points. This included medial and lateral malleoli and then [place]' s line Knee was taken through normal range of motion as well as stress range of motion and the hip center was also set. Once the Navio had been fully set up , femur was then scanned using the handheld array and then in similar fashion, tibia was also scanned using the handheld array. Once adequate information was input, intraoperative templating was then performed. Lap was placed over the knee during this time. The Navio came to the same measurements that I had had using a 6 narrow femur as well as a 4 tibial baseplate. These were adjusted until I had good flexion and extension gaps. Once these had been taken, the distal femur was burred down and peg holes were drilled. Similarly, peg holes for the tibia were also drilled. Femur was then placed and the top hat was placed into the cutting guide and this was gently adjusted until the alignment appeared perfect and the femoral guide was then impacted into place. Additional pin was placed. Anterior and posterior femoral cuts followed by the chamfer cuts were taken. Attention was turned to the tibia and in similar fashion, the tibial guide was placed and the top hat with the array put in and gently adjusted to make sure that my slope and angled cut were all proper. Tibial guide was then pinned into place and the tibial cut was taken. A nice cut was obtained. 9 spacer block was placed and with a drop edna, alignment appeared perfect. She had just a tiny bit of play in extension as well as flexion as per the templating. 6 femur was placed and notch cut was finished using the reamer and then the punch. 4 sat very nicely on the tibia and this was pinned into place. Proximal tibia was drilled and then punched. Trial polyp was placed and she came out nicely into full extension and easily flexed back and even with the other pins in had good tracking of the patella. Patella was sized at a 32 and holes were drilled and trial was snapped into place. Patellar tracking was still good. Trial instrumentation was removed as were the pins. Knee was copiously pulse lavaged. Cement was being prepared. Tibia followed by femur and patella were all cemented into place. Excess cement was removed. Behind the medial condyle and then the lateral condyle each had been injected prior to placement of the hardware with 10 cc of 0.25% Marcaine with epinephrine. An additional 10 cc was placed just superior to the lateral gutter of the knee as well. Cement was allowed to harden and the knee was searched for additional cement and a few loose pieces were found. Knee was again copiously pulse lavaged. She was again trialed with the 9 mm trial poly and had the same wonderful motion and stability. High-flex polyethylene was then snapped into place. Knee was again copiously pulse lavaged and parapatellar arthrotomy was repaired using interrupted #1 Vicryl sutures. Tourniquet was let down during this and no significant bleeding was encountered. Once the arthrotomy was closed, knee was again taken through range of motion and had same wonderful motion and stability. Knee was again copiously pulse lavaged and subcutaneous tissues were reapproximated using 2-0 Vicryl. Skin was closed using stalin. Sterile dressing and Cryo/Cuff were applied in the OR. The patient was then awakened and stable on transfer to the recovery room. [id number]/[facility] #: [id number] ALTHEA
[2019-06-01] MEDS: ceFAZolin 1 GM ADVAN(*) 1 GM in NS 0.9% 50 ML* 50 ML IVPB SCH ×2 (15:30→23:23)
[2019-06-01] MEDS ORDERED: Warfarin TAB(*) 10 MG PO ONE (17:00)
[2019-06-01] MEDS: oxyCODONE/Acetamin 5/325 MG* TAB PO PRN ×2 (17:10→21:29)
--- NOTE | 2019-06-01 20:14 | CONS ---
CC: Angella Duran NP; Dr. Rickey Angelo * CONSULTATION REPORT: DATE OF CONSULT: 06/01/19 PRIMARY CARE PROVIDER: Angella Duran NP REQUESTING PHYSICIAN: Rickey Angelo MD REASON FOR CONSULTATION: Medical management. HISTORY OF PRESENT ILLNESS: This is a 63-year-old female with past medical history of arthritis who has been admitted to the hospital post left knee replacement. She has history of hypertension, constipation, arthritis, who underwent left knee replacement earlier today. She currently is having left- sided knee pain, 11/26, states that the pain is controlled with medications that the nurse has been giving her. She has long history of arthritis. PAST MEDICAL HISTORY: 1. Hypertension. 2. Constipation. 3. Arthritis. PAST SURGICAL HISTORY: 1. Carpal tunnel surgery. 2. Hammertoe surgery bilaterally. 3. Tubal ligation. 4. Breast biopsy. 5. Right knee surgery. 6. Right shoulder surgery. 7. Right hip surgery. HOME MEDICATIONS: Include: 1. Gabapentin 100 mg daily. 2. Trazodone 50 mg at bedtime as needed. 3. Wellbutrin 300 mg in the morning. 4. Valsartan/HCTZ 1 tab in the morning. 6. Omeprazole 20 mg daily. 7. Multivitamins 1 tab daily. 8. Meloxicam 15 mg in the morning. 9. Ibuprofen 600 mg every 6 hours as needed. 10. Fluticasone 2 sprays both nares daily as needed. 11. Katerina 180 mg in the morning. 12. Vitamin B12 500 mcg in the morning. 13. Vitamin D3 2000 units daily. 14. Calcium carbonate/vitamin D3 one cap daily. SOCIAL HISTORY: The patient lives at home with her . Occasional smoker. She will drink 2 to 3 drinks per month. FAMILY HISTORY: Father: Kidney cancer, prostate cancer, myocardial infarction , hypertension. Mother: Arthritis and diverticulosis. REVIEW OF SYSTEMS: She has occasional headaches and a chronic joint pain with no recent changes from baseline recently. She does not have any fevers, no chills, no sore throat, no abdominal pain, no nausea, no vomiting, no chest pain , no shortness of breath, no cough, no burning upon urination, no increase in urinary frequency, no urinary hesitancy, no changes in her mentation or mood. Otherwise, a full 11 review of systems is done and is otherwise negative. PHYSICAL EXAMINATION: Blood pressure is 110/78, heart rate of 106, respiratory rate 18, temperature is 98.8. General: This is a well developed, well nourished female, lying on a hospital bed, in no acute distress. Pupils equal, round, reactive to light. Atraumatic, normocephalic. Oral mucosa is moist. There is no nystagmus. There is no oropharyngeal erythema. Neck is supple with range of motion intact. There is no cervical lymphadenopathy. Chest: There is no chest wall tenderness. Regular rate, rhythm. No murmurs, rubs, or gallops. Lungs: There is no tachypnea. No use of accessory muscles. There is no wheezing, rales, or rhonchi. Abdomen: Bowel sounds are normoactive in all 4 quadrants. Abdomen is soft, nontender, nondistended. Extremities: Surgical scar at the right knee noted. Dressing intact at the left knee. There is no calf tenderness bilaterally. Dorsalis pedis 2+ bilaterally. Neurological: Alert and oriented x3. Speech is clear and coherent. Tongue is midline. Symmetric smile. No focal neurological deficit. Psychiatric: Mood is appropriate. She is alert and oriented. Answers all questions appropriately. Skin: There are no rashes or lesions. IMPRESSION AND PLAN: 1. Status post left knee replacement: Pain control as per primary care. DVT prophylaxis as per Orthopedics. Pain control per Orthopedics. 2. History of hypertension: Currently, the blood pressure is 110/78. Blood pressure has been running on the soft side. To avoid hypotension caused by pain medication, I will hold the patient's HCTZ for now and continue the patient 's valsartan and monitor the patient's blood pressure closely. We can resume hydrochlorothiazide upon discharge. 3. History of arthritis: Pain control. 4. History of constipation: Bowel regimen has already been ordered by Orthopedics. 5. DVT prophylaxis. Per primary care team. 6. GI prophylaxis with pantoprazole has also been ordered. [id number]/[facility] #: [id number] MTDD
[2019-06-01] MEDS: Magnesium Hydroxide LIQ* 30 ML UDC PO SCH (21:29)
[2019-06-01] MEDS: Docusate CAP* 100 MG PO SCH (21:29)
[2019-06-02] MEDS: Lactated Ringers 1000 ML Bag* 1,000 ML IV SCH (00:52)
[2019-06-02] MEDS: Cyclobenzaprine TAB* 10 MG PO PRN ×3 (02:26→16:06)
[2019-06-02] MEDS: oxyCODONE/Acetamin 5/325 MG* TAB PO PRN ×4 (02:26→19:50)
[2019-06-02 06:17] LABS: Hematocrit 35 % (35-47); Hemoglobin 11.6 g/dL (12.0-16.0); Mean Platelet Volume 8.4 fL (7.4-10.4); Platelet Count 235 10^3/uL (150-450)
[2019-06-02] MEDS: oxyCODONE TAB* 5 MG TAB PO PRN ×2 (06:21→21:48)
[2019-06-02 06:49] LABS: Calcium 8.5 mg/dL (8.6-10.3); Potassium 3.9 mmol/L (3.5-5.0)
[2019-06-02 06:55] LABS: BUN/Creatinine Ratio 37.3 (8-20); EGFR Non-African American 103.3 (>60)
[2019-06-02] MEDS: ceFAZolin 1 GM ADVAN(*) 1 GM in NS 0.9% 50 ML* 50 ML IVPB SCH (07:12)
--- NOTE | 2019-06-02 07:45 | PN ---
Progress Note - Progress Note Date of Service: 06/02/19 SOAP: Subjective: resting comfortably, pain well controlled; denies chest pain/SOB Objective: Vital Signs Temp Pulse Resp BP Pulse Ox 98.4 F 96 16 109/61 98 06/02/19 07:36 06/02/19 07:36 06/02/19 07:36 06/02/19 07:36 06/02/19 07:36 Laboratory Last Values Hgb 11.6 g/dL (12.0-16.0) L 06/02/19 06:05 Hct 35 % (35-47) 06/02/19 06:05 Plt Count 235 10^3/uL (150-450) 06/02/19 06:05 MPV 8.4 fL (7.4-10.4) 06/02/19 06:05 Sodium 137 mmol/L (135-145) 06/02/19 06:05 Potassium 3.9 mmol/L (3.5-5.0) 06/02/19 06:05 Chloride 105 mmol/L (101-111) 06/02/19 06:05 Carbon Dioxide 25 mmol/L (22-32) 06/02/19 06:05 Anion Gap 7 mmol/L (2-11) 06/02/19 06:05 BUN 22 mg/dL (6-24) 06/02/19 06:05 Creatinine 0.59 mg/dL (0.51-0.95) 06/02/19 06:05 Est GFR ( Amer) 125.0 (>60) 06/02/19 06:05 Est GFR (Non-Af Amer) 103.3 (>60) 06/02/19 06:05 BUN/Creatinine Ratio 37.3 (8-20) H 06/02/19 06:05 Glucose 117 mg/dL (70-100) H 06/02/19 06:05 Calcium 8.5 mg/dL (8.6-10.3) L 06/02/19 06:05 PE: able to dorsi flex/plantar flex, intact sensation, 2+ DP pulse Assessment: POD#1 s/p left TKA Plan: 1) ordered stat INR- will dose coumadin once results are back 2) PT/OT- WBAT 3) continue current pain regimen 4) possible home tomorrow 5) Ancef x 24 hours
[2019-06-02] MEDS: Magnesium Hydroxide LIQ* 30 ML UDC PO SCH ×2 (08:24→21:48)
[2019-06-02] MEDS: BuPROPion XL* 300 MG TAB.XL PO SCH (08:24)
[2019-06-02] MEDS: Pantoprazole TAB * 40 MG TAB PO SCH (08:24)
[2019-06-02] MEDS: Docusate CAP* 100 MG PO SCH ×2 (08:24→21:48)
[2019-06-02] MEDS: Heparin VIAL(*) 5000 UNITS/ML VIAL (FIVE THOUSAND) SUBCUT SCH ×2 (08:24→21:48)
[2019-06-02] MEDS: Vitamin THERAPEUTIC TAB PO SCH (08:24)
[2019-06-02] MEDS: Valsartan TAB* 80 MG PO SCH (08:24)
[2019-06-02 08:45] LABS: INR 1.12 (0.82-1.09)
[2019-06-02] MEDS ORDERED: Hydrochlorothiazide TAB* 25 MG PO SCH (09:00)
[2019-06-02] MEDS ORDERED: Influenza VAC *QUAD* 2019-20* 0.5 ML SYRINGE IM ONE (09:00)
--- NOTE | 2019-06-02 11:13 | PN ---
Subjective Date of Service: 06/02/19 Interval History: Pt is drowsy today. She states she slept poorly last night, nursing notes the patient has had numerous pain meds today. She did work with PT. She states her pain is a 4/10 currently and manageable. Objective Active Medications: Acetaminophen (Tylenol Tab*) 650 mg PO Q8HR PRN PRN Reason: MILD PAIN or TEMP > 100.4 Bisacodyl (Dulcolax Supp*) 10 mg [place] DAILY PRN PRN Reason: CONSTIPATION Bupropion HCl (Bupropion Xl*) 300 mg PO QAM [facility] Last Admin: 06/02/19 08:24 Dose: 300 mg Cyclobenzaprine HCl (Flexeril Tab*) 10 mg PO Q6H PRN PRN Reason: SPASMS Last Admin: 06/02/19 08:21 Dose: 10 mg Diphenhydramine HCl (Benadryl Iv*) 25 mg IV Q6H PRN PRN Reason: PRURITIS Diphenhydramine HCl (Benadryl Po*) 25 mg PO Q6H PRN PRN Reason: PRURITIS Docusate Sodium (Colace Cap*) 100 mg PO BID [facility] Last Admin: 06/02/19 08:24 Dose: 100 mg Fluticasone Propionate (Flonase Nasal [place] 50mcg*) 2 spray BOTH NARES DAILY PRN PRN Reason: CONGESTION Heparin Sodium (Porcine) (Heparin Vial(*)) 5,000 units SUBCUT Q12HR [facility] Last Admin: 06/02/19 08:24 Dose: 5,000 units Lactated Ringer's (Lactated Ringers 1000 Ml Bag*) 1,000 mls @ 100 mls/hr IV PER RATE [facility] Last Admin: 06/02/19 00:52 Dose: 100 mls/hr Lactulose (Lactulose*) 30 ml PO BID PRN PRN Reason: CONSTIPATION Magnesium Hydroxide (Milk Of Magnesia Liq*) 30 ml PO BID [facility] Last Admin: 06/02/19 08:24 Dose: 30 ml Magnesium Hydroxide (Milk Of Magnesia Liq*) 30 ml PO Q6H PRN PRN Reason: CONSTIPATION Morphine Sulfate (Morphine Inj (Syringe))*) 2 mg IV Q4H PRN PRN Reason: Pain - Unrelieved Multivitamins (Theragran Tab*) 1 tab PO DAILY [facility] Last Admin: 06/02/19 08:24 Dose: 1 tab Ondansetron HCl (Zofran Inj*) 4 mg IV Q6H PRN PRN Reason: NAUSEA Ondansetron HCl (Zofran Odt Tab*) 4 mg PO Q6H PRN PRN Reason: NAUSEA Oxycodone HCl (Roxycodone Tab*) 10 mg PO Q4H PRN PRN Reason: Pain - Breakthrough Last Admin: 06/02/19 06:21 Dose: 10 mg Oxycodone/Acetaminophen (Percocet 5/325 Tab*) 1 tab PO Q4H PRN PRN Reason: PAIN - MODERATE Oxycodone/Acetaminophen (Percocet 5/325 Tab*) 2 tab PO Q4H PRN PRN Reason: PAIN - SEVERE Last Admin: 06/02/19 08:22 Dose: 2 tab Pantoprazole Sodium (Protonix Tab*) [facility] Last Admin: 06/02/19 08:24 Dose: 40 mg Trazodone HCl (Desyrel Tab*) 50 mg PO BEDTIME PRN PRN Reason: INSOMNIA Last Admin: 06/01/19 21:29 Dose: 50 mg Valsartan (Diovan Tab*) [facility] [place] Last Admin: 06/02/19 08:24 Dose: 80 mg Vital Signs - 8 hr 06/02/19 06/02/19 06/02/19 03:49 06:21 06:32 Temperature 97.5 F Pulse Rate 95 Respiratory 16 18 17 Rate Blood Pressure 125/66 (mmHg) O2 Sat by Pulse 98 Oximetry 06/02/19 06/02/19 06/02/19 07:36 08:21 08:22 Temperature 98.4 F Pulse Rate 96 Respiratory 16 18 18 Rate Blood Pressure 109/61 (mmHg) O2 Sat by Pulse 98 Oximetry 06/02/19 06/02/19 08:27 10:02 Temperature Pulse Rate Respiratory 18 18 Rate Blood Pressure (mmHg) O2 Sat by Pulse Oximetry Oxygen Devices in Use Now: None Appearance: Middle aged obese female lying in bed, NAD Eyes: No Scleral Icterus Ears/Nose/Mouth/Throat: Mucous Membranes Moist, - - face is flushed Respiratory: Symmetrical Chest Expansion and Respiratory Effort, Clear to Auscultation - anteriorly Cardiovascular: NL Sounds; No Murmurs; No JVD, No Edema, - - HR is tachycardic but regular Abdominal: NL Sounds; No Tenderness; No Distention Extremities: No Clubbing, Cyanosis, - - L knee in post op dressing and cryounit Skin: No Nodules or Sclerosis Neurological: - - drowsy, falls asleep easily during conversation Result Diagrams: 06/02/19 06:05 06/02/19 06:05 Assess/Plan/Problems-Billing Ms Brady is a 63 yo F who has a h/o HTN and depression who was admitted following an elective L total knee arthroplasty. - Patient Problems (1) S/P total knee arthroplasty Current Visit: Yes Status: Acute Onset Date: 07/18/15 Code(s): Z96.659 - PRESENCE OF UNSPECIFIED ARTIFICIAL KNEE JOINT SNOMED Code(s): 2327804197862 Comment: POD#1. Management per orthopedics including pain control and DVT prophylaxis. (2) HTN (hypertension) Current Visit: Yes Status: Acute Code(s): I10 - ESSENTIAL (PRIMARY) HYPERTENSION SNOMED Code(s): 34717168 Comment: BP is controlled on valsartan, HCTZ being held. Monitor BP. HR is up currently- will resume LR at 100ml/hr. (3) Anxiety and depression Current Visit: Yes Status: Acute Code(s): F41.8 - OTHER SPECIFIED ANXIETY DISORDERS SNOMED Code(s): 941574783 Comment: Continue wellbutrin. (4) DVT prophylaxis Current Visit: Yes Status: Acute Code(s): IHW2546 - SNOMED Code(s): 772454791 Comment: SQ heparin, coumadin to be started (5) Full code status Current Visit: Yes Status: Acute Code(s): Z78.9 - OTHER SPECIFIED HEALTH STATUS SNOMED Code(s): 578252922
[2019-06-02] MEDS ORDERED: Warfarin TAB(*) 10 MG PO ONE (17:00)
[2019-06-03] MEDS: oxyCODONE/Acetamin 5/325 MG* TAB PO PRN ×2 (04:16→11:22)
[2019-06-03 05:51] LABS: Hematocrit 35 % (35-47); Mean Platelet Volume 8.5 fL (7.4-10.4); Platelet Count 242 10^3/uL (150-450)
[2019-06-03] MEDS: Magnesium Hydroxide LIQ* 30 ML UDC PO SCH (08:16)
[2019-06-03] MEDS: Cyclobenzaprine TAB* 10 MG PO PRN (08:17)
[2019-06-03] MEDS: Pantoprazole TAB * 40 MG TAB PO SCH (08:17)
[2019-06-03] MEDS: oxyCODONE TAB* 5 MG TAB PO PRN ×2 (08:17→15:41)
[2019-06-03] MEDS: Heparin VIAL(*) 5000 UNITS/ML VIAL (FIVE THOUSAND) SUBCUT SCH (08:17)
[2019-06-03] MEDS: Valsartan TAB* 80 MG PO SCH (08:17)
[2019-06-03] MEDS: BuPROPion XL* 300 MG TAB.XL PO SCH (08:17)
[2019-06-03] MEDS: Vitamin THERAPEUTIC TAB PO SCH (08:18)
[2019-06-03] MEDS: Docusate CAP* 100 MG PO SCH (08:18)
[2019-06-03 09:17] LABS: INR 1.41 (0.82-1.09)
[2019-06-03] MEDS ORDERED: Bisacodyl SUPP* 10 MG SUPP PR PRN (10:41)
--- NOTE | 2019-06-03 10:48 | PN ---
Progress Note - Progress Note Date of Service: 06/03/19 SOAP: Subjective: []Pt seen at bedside. She has well controlled LLE pain. Denies CP, SOB, dizziness, nausea. Right shoulder mildly sore after surgery, still able to use the limb well. Tachycardia despite fluid yesterday. Objective: []Gen: NAD LLE: Left knee dressing changed, incision CDI, no erythema or discharge. Thigh is soft, DF/PF intact, DP2+, sensation intact to light touch distally Calves supple and nontender without erythema, edema or palpable cords Assessment: []POD 2 sp LTK Tachycardia Plan: []WBAT PT heparin bridge to coumadin, coumadin 6 mg tonight Hospitalist eval for tachycardia, low suspicion for PE but pain is well controlled and no longer dry. Will CTA Vital Signs Temp 98.3 F 06/03/19 08:10 Pulse 110 06/03/19 08:10 Resp 18 06/03/19 10:14 BP 134/52 06/03/19 08:10 Pulse Ox 97 06/03/19 08:10 Intake & Output 06/02/19 06/03/19 06/03/19 18:59 06:59 18:59 Intake Total 1500 1700 Output Total 1350 1150 200 Balance 150 550 -200 Intake: IV Fluids 500 0 LR 500 0 Oral 1000 1700 Output: Urine 1350 1150 200 Other: # Bowel Movements 1 Estimated Stool Amount Large Laboratory Last Values Hgb 12.0 g/dL (12.0-16.0) 06/03/19 05:08 Hct 35 % (35-47) 06/03/19 05:08 Plt Count 242 10^3/uL (150-450) 06/03/19 05:08 MPV 8.5 fL (7.4-10.4) 06/03/19 05:08 INR (Anticoag Therapy) 1.41 (0.82-1.09) H 06/03/19 09:03 Sodium 137 mmol/L (135-145) 06/02/19 06:05 Potassium 3.9 mmol/L (3.5-5.0) 06/02/19 06:05 Chloride 105 mmol/L (101-111) 06/02/19 06:05 Carbon Dioxide 25 mmol/L (22-32) 06/02/19 06:05 Anion Gap 7 mmol/L (2-11) 06/02/19 06:05 BUN 22 mg/dL (6-24) 06/02/19 06:05 Creatinine 0.59 mg/dL (0.51-0.95) 06/02/19 06:05 Est GFR ( Amer) 125.0 (>60) 06/02/19 06:05 Est GFR (Non-Af Amer) 103.3 (>60) 06/02/19 06:05 BUN/Creatinine Ratio 37.3 (8-20) H 06/02/19 06:05 Glucose 117 mg/dL (70-100) H 06/02/19 06:05 Calcium 8.5 mg/dL (8.6-10.3) L 06/02/19 06:05
[2019-06-03] MEDS ORDERED: Iohexol 350* (CONTRAST) 500 ML MDV IV ONE (11:09)
--- NOTE | 2019-06-03 12:03 | PN ---
Subjective Date of Service: 06/03/19 - ' Interval History: Pt is generally feeling well. She states she has some R sided chest discomfort- it hurts more when using the walker. No pleuritic chest pain. She can feel her heart racing. No SOB. She has had a BM. Objective Active Medications: Acetaminophen (Tylenol Tab*) 650 mg PO Q8HR PRN PRN Reason: MILD PAIN or TEMP > 100.4 Bisacodyl (Dulcolax Supp*) 10 mg NC DAILY PRN PRN Reason: CONSTIPATION Bupropion HCl (Bupropion Xl*) 300 mg PO QAM [facility] Last Admin: 06/03/19 08:17 Dose: 300 mg Cyclobenzaprine HCl (Flexeril Tab*) 10 mg PO Q6H PRN PRN Reason: SPASMS Last Admin: 06/03/19 08:17 Dose: 10 mg Diphenhydramine HCl (Benadryl Iv*) 25 mg IV Q6H PRN PRN Reason: PRURITIS Diphenhydramine HCl (Benadryl Po*) 25 mg PO Q6H PRN PRN Reason: PRURITIS Last Admin: 06/02/19 17:49 Dose: 25 mg Docusate Sodium (Colace Cap*) 100 mg PO BID [facility] Last Admin: 06/03/19 08:18 Dose: 100 mg Fluticasone Propionate (Flonase Nasal [place] 50mcg*) 2 spray BOTH NARES DAILY PRN PRN Reason: CONGESTION Heparin Sodium (Porcine) (Heparin Vial(*)) 5,000 units SUBCUT Q12HR [facility] Last Admin: 06/03/19 08:17 Dose: 5,000 units Lactated Ringer's (Lactated Ringers 1000 Ml Bag*) 1,000 mls @ 100 mls/hr IV PER RATE [facility] Last Admin: 06/02/19 00:52 Dose: 100 mls/hr Lactulose (Lactulose*) 30 ml PO BID PRN PRN Reason: CONSTIPATION Magnesium Hydroxide (Milk Of Magnesia Liq*) 30 ml PO BID [facility] Last Admin: 06/03/19 08:16 Dose: 30 ml Magnesium Hydroxide (Milk Of Magnesia Liq*) 30 ml PO Q6H PRN PRN Reason: CONSTIPATION Morphine Sulfate (Morphine Inj (Syringe))*) 2 mg IV Q4H PRN PRN Reason: Pain - Unrelieved Multivitamins (Theragran Tab*) 1 tab PO DAILY [facility] Last Admin: 06/03/19 08:18 Dose: 1 tab Ondansetron HCl (Zofran Inj*) 4 mg IV Q6H PRN PRN Reason: NAUSEA Ondansetron HCl (Zofran Odt Tab*) 4 mg PO Q6H PRN PRN Reason: NAUSEA Oxycodone HCl (Roxycodone Tab*) 10 mg PO Q4H PRN PRN Reason: Pain - Breakthrough Last Admin: 06/03/19 08:17 Dose: 10 mg Oxycodone/Acetaminophen (Percocet 5/325 Tab*) 1 tab PO Q4H PRN PRN Reason: PAIN - MODERATE Oxycodone/Acetaminophen (Percocet 5/325 Tab*) 2 tab PO Q4H PRN PRN Reason: PAIN - SEVERE Last Admin: 06/03/19 11:22 Dose: 2 tab Pantoprazole Sodium (Protonix Tab*) [facility] [place] Last Admin: 06/03/19 08:17 Dose: 40 mg Trazodone HCl (Desyrel Tab*) 50 mg PO BEDTIME PRN PRN Reason: INSOMNIA Last Admin: 06/01/19 21:29 Dose: 50 mg Valsartan (Diovan Tab*) [facility] [place] Last Admin: 06/03/19 08:17 Dose: 80 mg Warfarin Sodium (Coumadin Tab(*)) 6 mg PO ONCE@1700 [facility]; Protocol Stop: 06/03/19 17:01 Vital Signs - 8 hr 06/03/19 06/03/19 06/03/19 04:16 04:17 04:18 Temperature Pulse Rate Respiratory 18 18 18 Rate Blood Pressure (mmHg) O2 Sat by Pulse Oximetry 06/03/19 06/03/19 06/03/19 07:14 08:00 08:10 Temperature 98.3 F Pulse Rate 110 Respiratory 18 18 16 Rate Blood Pressure 134/52 (mmHg) O2 Sat by Pulse 97 97 Oximetry 06/03/19 06/03/19 06/03/19 08:17 10:14 11:22 Temperature Pulse Rate Respiratory 18 18 18 Rate Blood Pressure (mmHg) O2 Sat by Pulse Oximetry Oxygen Devices in Use Now: None Appearance: Middle aged female sitting up in a chair, NAD Eyes: No Scleral Icterus Ears/Nose/Mouth/Throat: Mucous Membranes Moist Respiratory: Symmetrical Chest Expansion and Respiratory Effort, Clear to Auscultation Cardiovascular: NL Sounds; No Murmurs; No JVD, - - HR is regular but tachycardic Abdominal: NL Sounds; No Tenderness; No Distention Extremities: No Clubbing, Cyanosis, - - L knee in dressing and cryounit Skin: No Nodules or Sclerosis Neurological: Alert and Oriented x 3 Result Diagrams: 06/03/19 05:08 06/02/19 06:05 Assess/Plan/Problems-Billing Ms Brady is a 63 yo F who has a h/o HTN and depression who was admitted following an elective L total knee arthroplasty. - Patient Problems (1) Tachycardia Current Visit: Yes Status: Acute Code(s): R00.0 - TACHYCARDIA, UNSPECIFIED SNOMED Code(s): 5519829 Comment: Pt remains tachycardic despite being hydrated yesterday. No significant pain or anxiety. Given the mild chest discomfort (though likely musculoskeletal), will obtain CTA chest. (2) S/P total knee arthroplasty Current Visit: Yes Status: Acute Onset Date: 07/18/15 Code(s): Z96.659 - PRESENCE OF UNSPECIFIED ARTIFICIAL KNEE JOINT SNOMED Code(s): 3328667362939 Comment: POD#2. Management per orthopedics including pain control and DVT prophylaxis. (3) HTN (hypertension) Current Visit: Yes Status: Acute Code(s): I10 - ESSENTIAL (PRIMARY) HYPERTENSION SNOMED Code(s): 16088810 Comment: BP is controlled on valsartan, HCTZ being held. Monitor BP. (4) Anxiety and depression Current Visit: Yes Status: Acute Code(s): F41.8 - OTHER SPECIFIED ANXIETY DISORDERS SNOMED Code(s): 489198450 Comment: Continue wellbutrin. (5) DVT prophylaxis Current Visit: Yes Status: Acute Code(s): PUE8014 - SNOMED Code(s): 270649859 Comment: SQ heparin, bridge to coumadin (6) Full code status Current Visit: Yes Status: Acute Code(s): Z78.9 - OTHER SPECIFIED HEALTH STATUS SNOMED Code(s): 916104133
[2019-06-03 15:38] VITALS: BP 132/65
--- NOTE | 2019-06-03 16:26 | DS ---
Orthopedic Discharge Summary - Discharge Summary Date of Admission:06/01/19 Date of Discharge: 06/03/19 Date of Surgery: 06/01/19 Attending Orthopedic Provider: Dr Angelo Pre-operative Diagnosis: Left knee osteoarthritis Operative Procedure: left total knee replacement Disposition of Patient: home with outpatient services Condition of Patient: stable History: HAILEY NAPOLES is a 63 year old F with years of increasingly severe left knee pain. Patient has failed conservative management and has elected to undergo a left total knee replacement Hospital Course: HAILEY was admitted to [facility] on 06/01/19. Patient underwent a left total knee replacement without complication followed by a brief recovery in PACU and transfer to the Short Stay Surgical Unit in stable condition. Our hospitalist service, physical therapy and occupational therapy also participated in this patients care. Post-op day 1: patient was alert and in no acute distress. Dressing was clean, dry and intact. Operative extremity dorsiflexion and plantarflexion intact, sensation intact to light touch distally, DP2+. Post-op day two: dressing was changed, incision was clean , dry and intact. CTA was done to rule out PE due to tachycardia, patient was asymptomatic and test was negative for PE. Patient was deemed to be medically and orthopedically stable for discharge. Physical therapy goals were met. Home Medications Medication Instructions Recorded Confirmed Type Omeprazole CAP (NF) [Prilosec CAP* 20 mg PO QAM 09/13/13 06/01/19 History 20 MG] Wellbutrin TAB* 300 mg PO QAM 09/13/13 06/01/19 History Fexofenadine (NF) [Katerina 180 180 mg PO QAM 07/13/15 06/01/19 History (NF)] Fluticasone NASAL SPRAY 50MCG* 2 spray BOTH NARES DAILY PRN 03/28/17 06/01/19 History [Flonase NASAL SPRAY 50MCG*] traZODone TAB* [Desyrel TAB*] 50 mg PO BEDTIME PRN 03/28/17 06/01/19 History Calcium Carbonate/Vitamin D3 1 cap PO QAM 02/09/19 06/01/19 History [Calcium 600+D Softgel] Cholecalciferol (Vitamin D3) 2,000 unit PO QAM 02/09/19 06/01/19 History [Vitamin D3] Meloxicam [Qmiiz Odt] 15 mg PO QAM 02/09/19 06/01/19 History Multivitamin [Multivitamins] 1 tab PO QAM 02/09/19 06/01/19 History Valsartan/HCTZ 80/12.5(NF) [Diovan 1 tab PO QAM 02/09/19 06/01/19 History Hct 80/12.5(NF)] Cyanocobalamin TAB* [Vitamin B12 500 mcg PO QAM 05/20/19 06/01/19 History TAB*] Pyridoxine TAB* [Vitamin B6 TAB*] 50 mg PO QAM 05/20/19 06/01/19 History Gabapentin 100 mg PO DAILY 06/01/19 06/01/19 History Acetaminophen TAB* [Tylenol TAB*] 650 mg PO Q8HR PRN tab 06/03/19 Rx Aspirin TAB* [Aspirin 325 MG TAB*] 325 mg PO DAILY #30 tab 06/03/19 Rx Docusate CAP* [Colace Cap*] 100 mg PO BID PRN #90 cap 06/03/19 Rx Warfarin TAB(*) [Coumadin TAB(*)] 2 mg PO DAILY #90 tab 06/03/19 Rx oxyCODONE TAB* [Roxycodone TAB 5 10 mg PO Q4H PRN #70 tab MDD 10 06/03/19 Rx mg*] Discharge Instructions following Orthopedic Surgery: Activity: * Weight Bearing as tolerated * Continue physical therapy and occupational therapy exercises as shown * Start outpatient physical therapy Wound care: * OK to shower on post-op day 3, no bathing, swimming, or submerging wound. * Use gentle soap, pat dry. Cover with gauze, DAXA wrap or tape. * make appt with orthopedics in 2 weeks for staple removal Call Orthopedic office for: * Increased drainage * Redness * Increased pain * Fever Go to ER with shortness of breath or chest pain. Diet: * Regular diet * Increase fluids and fiber to prevent constipation. * Continue to use stool softeners, call office if no bowel motion within 48 hours. Medications See Home Medication List in your packet for medications that you should take after discharge. DVT Prophylaxis: Increases bleeding tendency Coumadin Dosing: * Please note that you have been given 2 mg tablets. * Go to the outpatient lab draw blood work for INR on Saturday and . * You will be provided with dose instructions on Mondays and . * If you do not receive dosing instruction on dosing, please call our office right away. Please mckay dosing instructions on your calendar as they are provided to you. * Dosing: You already took coumadin today 06/03. 06/04 have your INR rechecked for further dosing instruction. Call orthopedic office if you do not receive dosing instructions. Aspirin 325 mg daily along with coumadin until INR is between 2-3, then stop taking aspirin. Pain Control: oxycodone 5 mg Dosin mg tabs take 1 tab for moderate pain and 2 tabs for severe pain by mouth every 4-6 hours as needed for pain. Maximum of 10 tabs per day. Hold for sedation and wean off as soon as pain allows Antibiotics are required prior to any dental work. Have your heart rate rechecked within the next week by your PCP as it was elevated in the hospital. FOLLOW UP: Follow up with Dr. Franco] Within 4 weeks, call for appointment Please call our office with any questions or concerns ([phone]) RX to [facility] [place]
[2019-06-03] MEDS ORDERED: Warfarin TAB(*) 6 MG PO SCH (17:00)
== END 2019-06-03 17:10 | disposition home health service (06) | DRG 302 ==
LOC: AA 05:50 → SSU 10:41
PROVIDERS: ADMIT Orthopaedic Surgery; ATTEND Orthopaedic Surgery
PROC: 8E0YXBZ Computer Assisted Procedure of Lower Extremity (ICD-10-PCS; 2019-06-01)
PROC: 0SRD069 Replacement of Left Knee Joint with Oxidized Zirconium on Polyethylene Synthetic Substitute, Cemented, Open Approach (ICD-10-PCS; principal; 2019-06-01 07:30)
DX: M17.12 Unilateral primary osteoarthritis, left knee (principal); I10 Essential (primary) hypertension; G89.29 Other chronic pain; K21.9 Gastro-esophageal reflux disease without esophagitis; M25.512 Pain in left shoulder; E66.9 Obesity, unspecified; F41.8 Other specified anxiety disorders; R00.0 Tachycardia, unspecified; R07.89 Other chest pain; Z96.651 Presence of right artificial knee joint; K57.90 Diverticulosis of intestine, part unspecified, without perforation or abscess without bleeding; Z87.442 Personal history of urinary calculi; Z80.3 Family history of malignant neoplasm of breast; Z87.891 Personal history of nicotine dependence; Z98.51 Tubal ligation status; Z72.89 Other problems related to lifestyle; Z80.51 Family history of malignant neoplasm of kidney; Z23 Encounter for immunization; Z68.37 Body mass index [BMI] 37.0-37.9, adult; Z88.1 Allergy status to other antibiotic agents
CPT/HCPCS: 36415; 71275; 80048; 85014; 85018; 85049; 85610; 88305; 88311; 90686; 93005; A9270-GY; C1776; J0690; J1644; J2250; J2704; J2795; J3010; J3490; J8540; Q9967